=== PATIENT | male | born 1940 | race Caucasian/White ===

== ENCOUNTER 2016-11-17 10:55 | Outpatient (CLI) | payer MEDICARE, OTHER | END 2016-11-17 10:56 | disposition home or self-care (01) | DX: E29.1 Testicular hypofunction (principal) ==

== ENCOUNTER 2017-02-01 13:49 | Outpatient (CLI) | payer MEDICARE, OTHER | END 2017-02-01 13:50 | disposition home or self-care (01) | DX: J39.8 Other specified diseases of upper respiratory tract (principal); D00.1 Carcinoma in situ of esophagus ==

== ENCOUNTER 2017-02-24 06:11 | Day surgery (SDC) | payer MEDICARE, OTHER ==
[2017-02-24] MEDS ORDERED: LACTATED RINGERS 1,000 ML IV ONE ×3 (06:40→08:59)
[2017-02-24] MEDS ORDERED: LIDOCAINE-MPF 2% 5 ML VIAL IM ONE (07:15)
[2017-02-24] MEDS ORDERED: PROPOFOL 200 MG/20 ML VIAL IVP ONE (07:15)
[2017-02-24] MEDS ORDERED: hydrALAZINE INJ 20 MG/ML VIAL IVP ONE (07:15)
[2017-02-24] MEDS ORDERED: GLYCOPYRROLATE 1 MG/5 ML VIAL IVP ONE (07:15)
[2017-02-24] MEDS ORDERED: KETAMINE 500 MG/10 ML VIAL IVP ONE (07:15)
[2017-02-24] MEDS ORDERED: MIDAZOLAM 2 MG/2 ML VIAL IVP ONE (07:15)
[2017-02-24] MEDS ORDERED: BUPIVACAINE 0.5%-EPI 1:200000 PF 30 ML VIAL SUBQ ONE ×2 (08:22)
[2017-02-24] MEDS ORDERED: LIDOCAINE 1% 50 ML MDV SUBQ ONE ×2 (08:22)
[2017-02-24] MEDS ORDERED: DEXAMETHASONE 4 MG/ML VIAL ONE (09:52)
[2017-02-24] MEDS ORDERED: RACEPINEPHRINE 2.25% NEB INH ONE (10:34)
[2017-02-24] MEDS ORDERED: ONDANSETRON 4 MG/2 ML VIAL ONE (10:51)
[2017-02-24] MEDS ORDERED: IPRATROPIUM/ALBUTEROL 3 ML NEB INH ONE (13:11)
== END 2017-02-24 06:12 | disposition home or self-care (01) ==
PROC: 0DB18ZX Excision of Upper Esophagus, Via Natural or Artificial Opening Endoscopic, Diagnostic (ICD-10-PCS; principal; 2017-02-24 07:30)
PROC: 02HV33Z Insertion of Infusion Device into Superior Vena Cava, Percutaneous Approach (ICD-10-PCS; 2017-02-24 07:30)
DX: C34.90 Malignant neoplasm of unspecified part of unspecified bronchus or lung (principal); C33 Malignant neoplasm of trachea; Z85.01 Personal history of malignant neoplasm of esophagus; K22.10 Ulcer of esophagus without bleeding; I10 Essential (primary) hypertension; K21.9 Gastro-esophageal reflux disease without esophagitis; F17.210 Nicotine dependence, cigarettes, uncomplicated; I83.90 Asymptomatic varicose veins of unspecified lower extremity; R09.89 Other specified symptoms and signs involving the circulatory and respiratory systems; J43.9 Emphysema, unspecified; N40.1 Benign prostatic hyperplasia with lower urinary tract symptoms; R33.8 Other retention of urine
CPT/HCPCS: 36561; 43239; 51702; 51798; 71010; 71020; 81001; 99283; A9270; C1788; J7120; J7620

== ENCOUNTER 2017-02-24 19:20 | Emergency (ER) | payer MEDICARE, OTHER ==
[2017-02-24] MEDS ORDERED: LIDOCAINE 2% URO-JET 5 ML SYRINGE UR STA (20:33)
[2017-02-24] MEDS ORDERED: LIDOCAINE 2% URO-JET 5 ML SYRINGE UR ONE (20:38)
== END 2017-02-24 21:46 | disposition home or self-care (01) ==
DX: N40.1 Benign prostatic hyperplasia with lower urinary tract symptoms (principal); R33.8 Other retention of urine; Z98.890 Other specified postprocedural states; I10 Essential (primary) hypertension; K21.9 Gastro-esophageal reflux disease without esophagitis

== ENCOUNTER 2017-03-27 08:00 | Outpatient (CLI) | payer MEDICARE, OTHER | END 2017-03-27 08:01 | disposition home or self-care (01) | DX: E29.1 Testicular hypofunction (principal) ==

== ENCOUNTER 2017-04-14 09:05 | Inpatient (IN) | payer MEDICARE, OTHER ==
--- NOTE | 2017-04-14 09:14 | ED Physician Documentation ---
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 several weeks of progressive soa and worsening cough no fever no NVD no leg swelling no CP arrives hypoxic and in new onset afib RVR states he has an advanced directive on file - yes to CPR "but dont get carried away" and yes to intubation "as long as it is temporary" Review of Systems Constitutional: denies: Fever, Chills Cardiac: denies: Chest pain / pressure, Palpitations Respiratory: reports: Dyspnea, Cough GI: denies: Abdominal Pain, Nausea, Vomiting, Diarrhea Musculoskeletal: denies: Extremity pain, Extremity swelling Endocrine: denies: Easy bruising / bleeding Immunocompromised: denies: Immunocompromised PD PAST MEDICAL HISTORY - Past Medical History Cardiovascular: Hypertension, High cholesterol Respiratory: None, Shortness of breath, Other Neuro: None Endocrine/Autoimmune: None GI: GERD, Other : Benign prostate hypertrophy HEENT: None, Chronic vision loss Psych: None, Depression Musculoskeletal: Osteoarthritis Derm: None - Past Surgical History General: Appendectomy /B[employer] 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 - Present Medications Home Medications: Ambulatory Orders Medication Instructions Recorded Confirmed Multivitamin [Multi-Vitamin Daily] 1 each PO DAILY 03/27/13 04/14/17 raNITIdine [Zantac] 150 mg PO BID 02/20/17 04/14/17 Albuterol Sulf [Ventolin Hfa 2 puffs INH Q4HR PRN 03/21/17 04/14/17 Inhaler] Lisinopril 10 mg PO DAILY 04/14/17 04/14/17 Tamsulosin HCl [Tamsulosin HCl] 0.5 mg PO DAILY 04/14/17 04/14/17 - Allergies Allergies/Adverse Reactions: Allergies Allergy/AdvReac Type Severity Reaction Status Date / Time naproxen sodium * Allergy Hives Verified 02/24/17 20:37 [From [place]] - Social History Does the pt smoke?: No Smoking Status: Never smoker PD ED PE NORMAL - Vitals Vital signs reviewed: Yes - General General: Alert and oriented X 3, Other (cachectic labored resp) - Neck Neck: Supple, no meningeal sign - Cardiac Cardiac: No: RRR (tachy irreg) - Respiratory Respiratory: Other (syeda BS coarse MOUNIKA) - Abdomen Abdomen: Soft, Non tender - Derm Derm: Other (little pale) - Extremities Extremities: No deformity, No edema, No calf tenderness / cord - Neuro Neuro: Alert and oriented X 3 Results - Vitals Vitals: Vital Signs - 24 hr 04/14/17 04/14/17 04/14/17 09:13 09:36 09:38 Temperature 36.7 C Heart Rate 187 H 161 H 164 H Respiratory 24 24 24 Rate Blood Pressure 127/70 103/67 93/47 L O2 Saturation 84 L 96 94 04/14/17 04/14/17 04/14/17 09:44 09:47 10:14 Temperature Heart Rate 140 H 157 H Respiratory 22 20 Rate Blood Pressure 88/55 L 91/50 L 110/61 O2 Saturation 93 96 04/14/17 04/14/17 04/14/17 10:16 10:18 10:19 Temperature Heart Rate 84 83 88 Respiratory 18 16 Rate Blood Pressure 74/42 L 105/56 L O2 Saturation 100 98 04/14/17 04/14/17 04/14/17 10:22 10:48 11:03 Temperature 36.5 C Heart Rate 87 93 92 Respiratory 16 18 18 Rate Blood Pressure 103/52 L 87/45 L 85/47 L O2 Saturation 94 96 95 04/14/17 04/14/17 04/14/17 11:23 12:25 12:29 Temperature Heart Rate 87 81 82 Respiratory 16 18 Rate Blood Pressure 83/50 L 87/58 L 90/66 O2 Saturation 96 96 04/14/17 04/14/17 12:36 12:40 Temperature Heart Rate 82 85 Respiratory 16 16 Rate Blood Pressure 88/56 L 94/53 L O2 Saturation 99 97 Oxygen O2 Source Nasal cannula Oxygen Flow Rate 4 - EKG (time done) 0940 Rate: Rate (enter#) (165) Rhythm: Atrial fibrillation [place]: Normal Ischemia: Non specific changes 1027 Rate: Rate (enter#) (86) Rhythm: NSR [place]: Normal Intervals: Normal [place] (borderline) Ischemia: ST elevation c/w repol - Labs Labs: Laboratory Tests 04/14/17 04/14/17 04/14/17 09:26 09:26 09:26 WBC 4.5 L RBC 3.06 L Hgb 11.2 L Hct 32.9 L MCV 107.5 H MCH 36.6 H MCHC 34.1 RDW 14.4 Plt Count 64 L MPV 8.7 Neut # 4.1 Lymph # 0.2 L [place] # 0.1 Eos # 0.0 Baso # 0.0 Absolute Nucleated RBC 0.02 Nucleated RBCs 0.5 Manual Slide Review Indicated WBC Morphology 1+ TOXIC GRANULATION Platelet Estimate DECREASED (<130,000) Platelet Morphology NORMAL APPEARANCE RBC Morph Micro Appear 1+ SCHISTOCYTES Sodium 122 L Potassium 4.5 Chloride 85 L Carbon Dioxide 23 Anion Gap 14.0 H BUN 18 Creatinine 1.1 Estimated GFR (MDRD) 65 L Glucose 176 H Lactic Acid Calcium 7.9 L Phosphorus Magnesium Troponin I < 0.04 B-Natriuretic Peptide Albumin 04/14/17 04/14/17 04/14/17 09:26 09:26 10:45 WBC RBC Hgb Hct MCV MCH MCHC RDW Plt Count MPV Neut # Lymph # [place] # Eos # Baso # Absolute Nucleated RBC Nucleated RBCs Manual Slide Review WBC Morphology Platelet Estimate Platelet Morphology RBC Morph Micro Appear Sodium Potassium Chloride Carbon Dioxide Anion Gap BUN Creatinine Estimated GFR (MDRD) Glucose Lactic Acid 1.9 Calcium Phosphorus 4.5 Magnesium 1.7 Troponin I B-Natriuretic Peptide 279 H Albumin 2.2 L - Rads (name of study) CXR Radiology: See rad report (extensive right basilar infiltrates, minimal L infiltrate small effusions) CTPA Radiology: See rad report (+ PE RML lobar level, possible filling defect in R atrium and IVC recommend echo for further, 2 masses RLL, infiltrate could be lymphangetic spread of cancer or perhaps infiltrate, enlarged nodes ) Procedures - Cardioversion 1 Indication: Tachyarrhythmia, Clinically unstable, Hypotension Risks, benefits, alternatives explained to: Pt, Other (family) Prep: IV, O2, reporting specialist, Pulse ox, Airway equip Meds: Etomidate, Propofol, Versed CS via: Pads, AP approach Sync: Biphasic, 100j Post cardioversion rhythm: NSR Complications: Other (low BP) Performed by: Specialist (anesthesia did sedation I did cardioversion) PD MEDICAL DECISION MAKING - ED course ED course: pt with unstable a fib - tried dilt but BP dropped and HR still up to 190 needs cardioversion high risk conscious sedation (elderly comorbidities, hypoxic etc) so anesthesia assisted with sedation (etomidate 20 and propofol 40 and versed 2mg) while I performed the cardioversion cardiovert successful at 100 J X 1 sedation went smoothly, no hypoxia or resp compromise but pt did have hypotension req IVF and ephedrine administered by anesthesia pt continued to be hypotensive CXR showed large RLL infiltrate - given zosyn after lactate and blood cx CTPA showed PE but also either spread of his cancer or pna - given heparin as well and CT showed possible clot in R atrium and IVC echo rec and so that was done and not clot was seen pt continued to be hypotensive even after heparin for PE and antibiotics and IVF - stated levophed pt admitted to ICU Dr Ochoa Departure - Departure Disposition: 66 [facility] DC/Xfer Clinical Impression: Atrial fibrillation with RVR, Hypoxia Pulmonary embolism Qualifiers: Pulmonary embolism type: other Chronicity: acute Acute cor pulmonale presence: without acute cor pulmonale Qualified Code(s): I26.99 - Other pulmonary embolism without acute cor pulmonale Pneumonia Qualifiers: Pneumonia type: due to unspecified organism Laterality: right Lung location: lower lobe of lung Qualified Code(s): J18.1 - Lobar pneumonia, unspecified organism Hypotension Qualifiers: Hypotension type: unspecified hypotension type Qualified Code(s): I95.9 - Hypotension, unspecified Lung cancer Qualifiers: Laterality: unspecified laterality Lung location: unspecified part of lung Qualified Code(s): C34.90 - Malignant neoplasm of unspecified part of unspecified bronchus or lung Anemia Qualifiers: Anemia type: unspecified type Qualified Code(s): D64.9 - Anemia, unspecified Condition: Serious Discharge Date/Time: 04/14/17 13:55
[2017-04-14] MEDS ORDERED: SODIUM CHLORIDE 0.9% 1,000 ML IV ONE ×2 (09:19→11:57)
[2017-04-14] MEDS ORDERED: diltiaZEM INJ 5 MG/ML VIAL IVP STA (09:20)
[2017-04-14] MEDS ORDERED: diltiaZEM INJ 5 MG/ML VIAL ONE (09:29)
[2017-04-14 09:32] LABS: EOSINOPHILS % (AUTO) 0.1 %; HCT - HEMATOCRIT 32.9 % (42.0-52.0); HGB - HEMOGLOBIN 11.2 g/dL (14.0-18.0); LYMPHOCYTES # (AUTO) 0.2 10^3/uL (1.5-3.5); LYMPHOCYTES % (AUTO) 4.3 %; MEAN CORPUSCULAR HEMOGLOBIN 36.6 pg (27.0-31.0); MEAN CORPUSCULAR HGB CONC 34.1 g/dL (32.0-36.0); MEAN CORPUSCULAR VOLUME 107.5 fL (80.0-94.0); MEAN PLATELET VOLUME 8.7 fL (7.4-11.4); MONOCYTES # (AUTO) 0.1 10^3/uL (0.0-1.0); MONOCYTES % (AUTO) 2.7 %; NEUTROPHILS # (AUTO) 4.1 10^3/uL (1.5-6.6); NEUTROPHILS % (AUTO) 92.9 %; NUCLEATED RED BLOOD CELLS AUTO 0.5 /100WBC; RED BLOOD COUNT 3.06 10^6/uL (4.70-6.10); RED CELL DISTRIBUTION WIDTH 14.4 % (12.0-15.0); UNCORRECTED WHITE BLOOD COUNT 4.5 x10^3/uL; WHITE BLOOD COUNT 4.5 x10^3/uL (4.8-10.8)
[2017-04-14 09:45] LABS: CALCIUM 7.9 mg/dL (8.5-10.3); CREATININE 1.1 mg/dL (0.6-1.2); POTASSIUM 4.5 mmol/L (3.5-5.0)
[2017-04-14] MEDS ORDERED: MIDAZOLAM 2 MG/2 ML VIAL ONE (10:05)
[2017-04-14 10:25] LABS: PLATELET ESTIMATE, MANUAL DECREASED (<130,000) (NORMAL); PLATELET MORPHOLOGY NORMAL APPEARANCE (NORMAL)
[2017-04-14 10:26] LABS: WBC MORPHOLOGY (MULTIPLE) 1+ TOXIC GRANULATION (NORMAL)
--- NOTE | 2017-04-14 10:26 | XRAY Preliminary Report ---
Exam: XR Chest 1 View IMPRESSION: Extensive right basilar infiltrates with minimal involvement on the left and small effusi ons. [facility] SITE ID: [id number]
[2017-04-14] MEDS ORDERED: PIPERACILLIN/TAZOBACTAM 3.375 GM in SODIUM CHLORIDE 0.9% MINIBAG 100 ML IV STA (10:29)
--- NOTE | 2017-04-14 10:29 | XRAY Report ---
EXAM: CHEST RADIOGRAPHY EXAM DATE: 04/14/2017 09:51 AM. CLINICAL HISTORY: Lung ca hypoxia new a fib. COMPARISON: 02/24/2017. TECHNIQUE: 1 view. FINDINGS: Lungs/Pleura: Hyperexpanded with coarse lung markings typical of COPD. Prominent infiltration in the right lower lobe with patchy consolidation. Small amount of atelectasis versus infiltrate in left bas e. Small pleural effusions. No pneumothorax. Mediastinum: Normal heart size, unchanged. Upper lobe vessels not distended. Other: Right Port-A-Cath. Degenerative changes. IMPRESSION: Extensive right basilar infiltrates with minimal involvement on the left and small effusi ons. [facility] Referring Provider Line: [phone] SITE ID: [id number]
[2017-04-14] MEDS ORDERED: ETOMIDATE 40 MG/20 ML VIAL IVP ONE (10:30)
[2017-04-14] MEDS ORDERED: ePHEDrine 50 MG/ML AMP IVP ONE (10:30)
[2017-04-14] MEDS ORDERED: PROPOFOL 200 MG/20 ML VIAL IVP ONE (10:30)
[2017-04-14] MEDS ORDERED: HEPARIN 25,000 UNITS/500 ML 500 ML IV STA (11:24)
[2017-04-14] MEDS ORDERED: HEPARIN 5,000 UNIT/ML VIAL IVP ONE (11:24)
--- NOTE | 2017-04-14 11:29 | CT Report ---
EXAM: CT ANGIOGRAM CHEST EXAM DATE: 04/14/2017 10:05 AM. CLINICAL HISTORY: Lung cancer hypoxia new a fib. COMPARISON: None. TECHNIQUE: Routine helical imaging was performed through the chest in the pulmonary arterial phase. I V Contrast: 100 cc Isovue-300. Reconstructions: Sagittal, coronal, and 3-D MIP. In accordance with CT protocol optimization, one or more of the following dose reduction techniques w ere utilized for this exam: automated exposure control, adjustment of mA and/or KV based on patient s ize, or use of iterative reconstructive technique. FINDINGS: Pulmonary Arteries: Diagnostic quality: Adequate through the segmental arteries. Thromboembolism involving the right midd le lobar artery and segmental arteries of the right middle lobe, with minimal involvement of lower lo be subsegmental vessels. No large or central lesion. RV/LV is within normal limits. There is no interventricular septal bowing. There is marked reflux of contrast material in the IVC. Lungs/Pleura: 3.2 cm cavitary mass in the right lower lobe with additional areas of masslike consolid ation including one measuring 4.2 cm. Extensive infiltration with peribronchial thickening predominan tly in the right lower lobe, but also involving right middle lobe and left lower lobe; lymphangitic s pread in the right lower lobe is a consideration, as well as congestion secondary to lymphadenopathy and atypical infection. Changes secondary to radiation therapy also a consideration. Small densities are present in the left upper lobe measuring 9-10 mm. Multiple similar nodules are present in the lef t lower lobe. No effusion or pneumothorax. Mediastinum: Normal heart size. No pericardial effusion. At least 2 vessel coronary artery calcificat ion. Possible filling defect in the right atrium extending into the partially opacified IVC, versus u nopacified blood. Enlarged mediastinal lymph nodes including right pretracheal nodes measuring up to 11 mm on axial image 74, right hilar node measuring 12 mm on image 79, and subcarinal node measuring 12 mm on image 80. Thoracic Aorta: Mildly prominent ascending thoracic aorta measuring 3.6 cm. Otherwise unremarkable. Upper Abdomen: Calcified granulomata in the spleen. Other: None. IMPRESSION: 1. Positive for pulmonary embolism involving predominantly the right middle lobe, but with some subse gmental involvement in the lower lobes as well. No large or central lesion. 2. Possible filling defect in right atrium and upper IVC; correlation with echocardiogram may be help ful. 3. Right lower lobe cavitary mass with additional masses and nodules bilaterally and associated lymph adenopathy, suspicion of lymphangitic spread, right lower lobe congestion, possible atypical infectio n. 4. Marked IVC reflux indicating right heart dysfunction. [facility] The above critical findings were discussed with Dr. Thomas by Dr. Jose Styles at 11:25 hrs on 04/14. Referring Provider Line: [phone] SITE ID: [id number]
[2017-04-14] MEDS ORDERED: HEPARIN 5,000 UNIT/ML VIAL ONE (11:30)
[2017-04-14] MEDS ORDERED: HEPARIN 25,000 UNITS/500 ML 500 ML IV ONE (11:30)
[2017-04-14] MEDS ORDERED: ONDANSETRON 4 MG/2 ML VIAL IVP PRN (12:43)
[2017-04-14] MEDS ORDERED: HYDROmorphone 1 MG/ML SYRINGE IVP PRN (12:43)
[2017-04-14] MEDS ORDERED: ONDANSETRON ODT 4 MG TABLET TL PRN (12:43)
[2017-04-14] MEDS ORDERED: HYDROcod/ACETAM 5/325 MG TABLET PO PRN (12:43)
[2017-04-14] MEDS ORDERED: ACETAMINOPHEN 325 MG TABLET PO PRN (12:43)
[2017-04-14] MEDS ORDERED: SODIUM CHLORIDE FLUSH 0.9% 10 ML SYRINGE IVP PRN (12:43)
[2017-04-14] MEDS: SODIUM CHLORIDE 0.9% 1,000 ML IV SCH (14:54)
[2017-04-14] MEDS: PIPERACILLIN/TAZOBACTAM 3.375 GM in SODIUM CHLORIDE 0.9% MINIBAG 100 ML IV SCH ×2 (15:22→22:47)
[2017-04-14 16:13] LABS: MAGNESIUM 1.7 mg/dL (1.7-2.8); PHOSPHORUS 4.5 mg/dL (2.5-4.6)
[2017-04-14] MEDS: ENOXAPARIN 60 MG/0.6 ML SYRINGE SUBQ SCH (17:15)
--- NOTE | 2017-04-14 19:32 | HISTORY & PHYSICAL EXAMINATION ---
DATE OF ADMISSION: 04/14/2017 PRIMARY CARE PROVIDER: Sanjiv Guthrie PA-C. ADMITTING PROVIDER: Jaclyn Ochoa MD. CHIEF COMPLAINT: Severe shortness of breath. HISTORY OF PRESENT ILLNESS: Patient is a 76-year-old man who has the most amazing history of surviving stage IV esophageal cancer. He was actually discharged from the Oncology practice in 2013 because he had been doing so well. He started developing a cough and hoarseness in 12/2016 after having a URI. In January, he lost his voice and it just does not seem to be getting better. A CT of the neck was obtained 02/01/2017 and he had a soft tissue mass involving the posterior wall of the trachea in the upper thorax with 50% luminal occlusion. CT/PET scan 02/10/2017 showed a mass in the upper trachea and retrotracheal region, and lung consolidation in the medial segment right upper lobe and inferior lingular region. Bronchoscopy was done by Dr. Matson, and an endobronchial lesion was biopsied 02/15/2017. This confirmed squamous cell cancer moderate to poorly differentiated. This is his second primary, new from his first primary in 2006. That history will be reviewed in the past medical history. He has received 2 cycles of chemotherapy and is not a candidate for radiation therapy because of previous radiation to this area. He had an EGD 02/24/2017 with baylee Simms for [facility] General surgery. He has also had a new port placed. He has been miserable with the chemotherapy and that everything tastes like cardboard, he has lost his appetite. The chronic cough and the hoarseness of his voice has remained unchanged. He is exhausted and minimal exertion just wipes him out. The cough has continued to progress over the last few weeks, it is getting worse and worse and almost constant, unremitting. Accompanying the cough has been a subtle increased shortness of breath. He has had no hemoptysis. The cough is productive of copious amounts of yellow, green phlegm. He denies fever or chills. The shortness of breath became so acute today that he called an ambulance and was brought to the hospital and seen by Dr. Thomas. His pulse was 187, he was 84% on room air. Blood pressure was 127/70, and he had no fever. He was quickly identified as having pneumonia, and atrial fibrillation. His blood pressure dropped into the 90s systolic. Diltiazem did not help. So he was electively cardioverted after sedation with accommodated Versed and propofol. That dropped his pressure and he became hypotensive and had to be put on Levophed. CT pulmonary angiogram was done and he was found to have multiple pulmonary emboli and a clot in the IVC. Dr. Thomas has consulted me. We are now placing the patient in the ICU. He is on Levophed from the emergency room, on Zosyn, IV heparin. PAST MEDICAL HISTORY: 1. 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 Symptoms at that time were dysphagia. Initial staging revealed lesion in the right lower lobe of the lung, and biopsy confirmed metastatic disease. He underwent induction chemotherapy with Taxotere, carboplatin, and Xeloda for 5 cycles that ended in 11/2007. He achieved complete response on PET CT scan. He then received consolidation radiation to the main tumor in the esophageal area, with excellent response. Subsequent PET/CT March 2008 revealed re-appearance of the right lower lung lesion, but at different location. He received carboplatin , Taxotere, and Xeloda again in April 2008 for 3 cycles. By 06/2008 no residual disease. Radiation therapy to this second lesion 10/2008 for consolidation. Followup March 2010 with MRI showed no recurrence of disease. PET CT 09/2011 revealed no recurrence of disease. He was followed on a regular basis by Dr. Francis Negron and finally discharged from the practice in 2014 after many years of no recurrence. 2. Hypertension. 3. Reflux disease. 4. Tobacco abuse. 5. Vasectomy. 6. Left subclavian port in 2006 which pneumothorax. 7. Appendectomy 1963. ALLERGIES: NAPROXEN. MEDICATIONS: 1. Ventolin HFA inhaler 2 puffs every 4 hours. This was given to him in the last couple weeks by his primary care provider for the cough. 2. Lisinopril 10 mg a day. 3. Multivitamin once a day. 4. Tamsulosin 0.4 mg daily. 5. Ranitidine 150 mg p.o. b.i.d.. SOCIAL HISTORY: He started smoking in 7 and stopped smoking 1 pack per day about a month ago. He drinks about 1 beer 3 times a week. He is in the [employer]. [employer] and stopped flying probably in January of this year. He was born in [place] and ended up on [facility] when he retired from the [employer]. He is to his first and they have been for 56 years. They live in their own home. He is completely independent with activities of daily living as this whole process was started. FAMILY HISTORY: Mom in her 70s, unknown cause. Dad in his 40s. They never talked about it and it was almost like a shameful subject. He thinks his dad may have of cancer. One sister is in diminishing health, but otherwise just getting older. His 4 children are healthy. REVIEW OF SYSTEMS: He was doing well up until the chemotherapy started. Between the chemotherapy and the Neupogen he has just gone downhill. Neupogen really makes his hands and feet burn and tingle. He is exhausted, short of breath all the time. ENT: Denies glaucoma or cataracts. Wears glasses. All food tastes like cardboard. Tongue always feels dry. He has lost his voice since January and is unable to vocalize other than through a forced whisper. PULMONARY: Chronic daily cough productive of thick phlegm. No hemoptysis. CARDIAC: Denies palpitations up until today. Has no history of edema, orthopnea , valvular heart disease or IA. GASTROINTESTINAL: Horrible anorexia, everything tastes like cardboard. Diminished bowel movements, but no abdominal pain, no diarrhea. GENITOURINARY: Recent onset of hesitancy, but no dysuria, urgency, frequency, flank pain. JOINTS: Not very painful. SKIN: No new rashes. PSYCHIATRIC: So far so good. A little apprehensive about the future, but seems to be coping well. Denies depression, suicidal ideation. CENTRAL NERVOUS SYSTEM: Denies headache, syncope, seizure, has peripheral neuropathy. PHYSICAL EXAMINATION: VITAL SIGNS: On examination, he seen in the ICU after transfer from the ED. He is on Levophed. Pulse is 84, blood pressure 126/56, respirations 16, 97% on 4 liters. GENERAL: Overall he is a lean, lanky, almost cachectic, elderly gentleman with a very soft hoarse voice, but I have to lean in very carefully to hear. He is wearing glasses, is in no acute distress, and more than anything he is just tired. He is very alert and lucid. HEAD AND NECK: Remarkable for the glasses, dry oral mucosa, hoarse voice. Shotty neck adenopathy, no carotid bruits. LUNGS: Have coarse rhonchi with inhalation and exhalation, rhonchi indicating quite a bit of phlegm. Diminished breath sounds at the bases, but no increased respiratory effort. No acute respiratory distress and during the exam, he has multiple episodes of very weak cough and he brings up minimal phlegm. HEART: PMI is normally placed with a regular rate and rhythm. Port is in place with no subcutaneous edema, redness, or heat. CHEST: the port site looks clean, no redness, fluctuence. ABDOMEN: Scaphoid, soft, nontender with firm musculature, normal bowel sounds. EXTREMITIES: Warm without clubbing, cyanosis, or edema. He has good range of motion of elbows, wrists, hands, knees. NEUROLOGIC: He is alert and oriented to person, place and time. He can follow 2- step commands. Cranial nerves appear intact other than the vocal cords. Upper and lower extremity strength testing are normal for a gentleman who is weak, tired, but there are no focal deficits and strength is intact. No tremors. Sodium was 122 this morning, potassium 4.5. BUN 18, creatinine 1.1, glucose 176 , lactic acid 1.9. BNP 279, phosphorus 4.5, magnesium 1.7. Troponin less than 0.04. White cell count is 4.5, hemoglobin 11.2, hematocrit 32.9, MCV 107, platelets 64. Blood cultures have been ordered. I have ordered sputum cultures. ASSESSMENT/PLAN: 1. New onset atrial fibrillation. Most likely cause is the multiple pulmonary emboli. Now cardioverted. Hypotensive as a result most likely of his medications given during sedation. Check echo. Medication hooker I do not think he is going to need any permanent medications now that he is successfully converted to sinus. Check troponin again in another 12 hours. 2. Multiple pulmonary emboli. Lovenox 60 mg subcutaneous b.i.d. With his history of malignancy he will most likely be on Lovenox and will not be transitioned to Coumadin. 3. Pneumonia. Zosyn and Levaquin. The patient is immunocompromised and has been in clinic settings twice now. Check sputum culture and review blood cultures. 4. 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 He has been offered palliative care and has declined it because he felt he was not having any symptoms that warranted it. He would like to get through this acute episode. His goal is still to try and live 10 years from now. I told him that I do not know if that would be possible. I explained that I feel he did remarkably well with his first go around on his stage IV cancer, but with this turn of events, the outcome may not be so great for him. Nevertheless, we are going to get him through this acute status. He wants everything done. Then he would like to sit down and talk to Dr. Negron about his prognosis, and he will weigh the benefits of all of this to see if a few weeks down the road he wants to continue this. 5. FULL CODE STATUS as above. JOB #: [id number] EXT JOB #:[id number] [email or web address]
[2017-04-14] MEDS: SODIUM CHLORIDE FLUSH 0.9% 10 ML SYRINGE IVP SCH ×2 (19:51→22:49)
[2017-04-14] MEDS ORDERED: ENOXAPARIN 40 MG/0.4 ML SYRINGE SUBQ SCH (21:00)
[2017-04-15] MEDS ORDERED: traZODone 50 MG TABLET PO SCH (00:20)
[2017-04-15] MEDS: SODIUM CHLORIDE 0.9% 1,000 ML IV SCH ×3 (00:34→20:32)
[2017-04-15] MEDS: ALBUTEROL NEB 2.5 MG/3 ML INH PRN ×3 (04:50→22:20)
[2017-04-15] MEDS: SODIUM CHLORIDE FLUSH 0.9% 10 ML SYRINGE IVP SCH ×3 (05:08→22:01)
[2017-04-15] MEDS: PIPERACILLIN/TAZOBACTAM 3.375 GM in SODIUM CHLORIDE 0.9% MINIBAG 100 ML IV SCH ×3 (05:14→22:00)
[2017-04-15] MEDS: ENOXAPARIN 60 MG/0.6 ML SYRINGE SUBQ SCH ×2 (05:15→17:38)
--- NOTE | 2017-04-15 05:35 | XRAY Preliminary Report ---
Exam: XR Chest 1 View IMPRESSION: 1. Large lung volumes consistent with emphysema. 2. Bilateral interstitial disease and small pleural effusions. 3. Dense airspace opacity at the right base. [facility] SITE ID: [id number]
--- NOTE | 2017-04-15 05:38 | XRAY Report ---
EXAM: CHEST RADIOGRAPHY EXAM DATE: 04/15/2017 05:21 AM. CLINICAL HISTORY: Increased hypoxia. COMPARISON: 04/14/2017. TECHNIQUE: 1 view. FINDINGS: Lungs/Pleura: Large lung volumes. Dense airspace opacity at the right base. Small pleural effusions. Bilateral interstitial disease. No pneumothorax. Mediastinum: Within exam limitations, cardiomediastinal contour is probably normal. Other: Right-sided PowerPort is unchanged. IMPRESSION: 1. Large lung volumes consistent with emphysema. 2. Bilateral interstitial disease and small pleural effusions. 3. Dense airspace opacity at the right base. [facility] Referring Provider Line: [phone] SITE ID: [id number]
[2017-04-15 06:11] LABS: BASOPHILS % (AUTO) 0.2 %; EOSINOPHILS % (AUTO) 0.2 %; HGB - HEMOGLOBIN 9.4 g/dL (14.0-18.0); LYMPHOCYTES % (AUTO) 8.3 %; MEAN CORPUSCULAR HGB CONC 34.7 g/dL (32.0-36.0); MEAN CORPUSCULAR VOLUME 106.4 fL (80.0-94.0); MEAN PLATELET VOLUME 9.6 fL (7.4-11.4); MONOCYTES % (AUTO) 3.5 %; NEUTROPHILS % (AUTO) 87.8 %; RED BLOOD COUNT 2.53 10^6/uL (4.70-6.10); RED CELL DISTRIBUTION WIDTH 14.2 % (12.0-15.0)
[2017-04-15 06:32] LABS: CALCIUM 7.3 mg/dL (8.5-10.3); CREATININE 0.7 mg/dL (0.6-1.2); MAGNESIUM 1.8 mg/dL (1.7-2.8); PHOSPHORUS 2.7 mg/dL (2.5-4.6); POTASSIUM 3.6 mmol/L (3.5-5.0)
[2017-04-15] MEDS: PANTOPRAZOLE 40 MG VIAL IVP SCH (06:37)
[2017-04-15 07:11] LABS: BAND NEUTROPHILS % (MANUAL) 24 %; LYMPHOCYTES % (MANUAL) 7 %; NEUTROPHILS % (MANUAL) 66 %; TOTAL CELLS COUNTED 100
[2017-04-15 07:12] LABS: NP AUTO DIFFERENTIAL? YES; NP MAN DIFFERENTIAL? NO; PLATELET ESTIMATE, MANUAL DECREASED (<130,000) (NORMAL); PLATELET MORPHOLOGY NORMAL APPEARANCE (NORMAL)
[2017-04-15] MEDS ORDERED: VANCOMYCIN INJ 1 GM, VANCOMYCIN INJ 500 MG in SODIUM CHLORIDE 0.9% 500 ML IV SCH (08:00)
[2017-04-15] MEDS ORDERED: VANCOMYCIN INJ 1 GM in SODIUM CHLORIDE 0.9% 250 ML IV SCH (08:00)
--- NOTE | 2017-04-15 08:02 | PROVIDER PROGRESS NOTE ---
Subjective - Prog Note Date Prog Note Date: 04/15/17 Prog Note Time: 07:54 - Subjective Subjective: he was able to come off levophed early evening. was eating as I left. this morning become more hypoxic. CXR with slight worseing pneumonia. Vancomycin added. Current Medications - Current Medications Current Medications: Active Medications Acetaminophen (Tylenol) 650 mg PO Q4HR PRN PRN Reason: Pain 1 to 4 Acetaminophen/Hydrocodone Bitart ([place] 5/325) 1 tab PO Q4HR PRN PRN Reason: Pain 5 to 7 Albuterol () 2.5 mg INH Q4HR PRN PRN Reason: Wheezing Last Admin: 04/15/17 04:50 Dose: 2.5 mg Enoxaparin Sodium (Lovenox) 60 mg SUBQ Q12H [facility]Z Last Admin: 04/15/17 05:15 Dose: 60 mg Hydromorphone HCl (Dilaudid Inj) 1 mg IVP Q2HR PRN PRN Reason: Pain 8 to 10 Sodium Chloride (Normal Saline 0.9%) 1,000 mls @ 100 mls/hr IV .Q10H [facility] Last Admin: 04/15/17 00:34 Dose: 100 mls/hr Piperacillin Sod/Tazobactam (Sod 3.375 gm/ Sodium Chloride) 100 mls @ 25 mls/ hr IV Q8H [facility] Last Admin: 04/15/17 05:14 Dose: 25 mls/hr Norepinephrine Bitartrate 8 mg (/ Dextrose) 250 mls @ 15 mls/hr IV .[id number] LIZ ; 8 MCG/MIN PRN Reason: Protocol Last Titration: 04/14/17 17:38 Dose: 0 mcg/min Vancomycin HCl 1 gm/Vancomycin HCl 500 mg/ Sodium Chloride 500 mls @ 250 mls/ hr IV ONCE [facility]Z Stop: 04/15/17 12:00 Last Admin: 04/15/17 07:54 Dose: 250 mls/hr Vancomycin HCl 1 gm/ Sodium (Chloride) 250 mls @ 166.667 mls/hr IV Q12H [facility] Ondansetron HCl (Zofran Odt) 4 mg TL Q6HR PRN PRN Reason: Nausea / Vomiting Ondansetron HCl (Zofran Inj) 4 mg IVP Q6HR PRN PRN Reason: Nausea / Vomiting Pantoprazole Sodium (Protonix) 40 mg IVP QDAC [facility] Last Admin: 04/15/17 06:37 Dose: 40 mg Sodium Chloride (Normal Saline Flush 0.9%) 10 ml IVP PRN PRN PRN Reason: NEEDED PER PROVIDER ORDERS Sodium Chloride (Normal Saline Flush 0.9%) 10 ml IVP Q8HR [facility] Last Admin: 04/15/17 05:08 Dose: 10 ml Multivitamin [Multi-Vitamin Daily] 1 each PO DAILY 03/27/13 raNITIdine [Zantac] 150 mg PO BID 02/20/17 Albuterol Sulf [Ventolin Hfa Inhaler] 2 puffs INH Q4HR PRN 03/21/17 Lisinopril 10 mg PO DAILY 04/14/17 Tamsulosin HCl [Tamsulosin HCl] 0.5 mg PO DAILY 04/14/17 Objective - Vital Signs/Intake & Output Reviewed Vital Signs: Yes Vital Signs: Vital Signs x48h Temp Pulse Pulse Resp BP Pulse Ox 04/15/17 07:00 101 H 24 101/42 L 99 04/15/17 06:00 99 24 92/45 L 99 04/15/17 05:22 99 24 108/48 L 97 04/15/17 05:00 102 H 28 H 122/59 L 94 04/15/17 04:50 112 H 102 H 20 105/50 L 90 L 04/15/17 04:00 102 H 24 107/47 L 92 04/15/17 03:00 100 24 98/45 L 94 04/15/17 02:12 101 H 24 97/45 L 93 04/15/17 01:00 104 H 24 112/49 L 94 04/15/17 00:00 36.7 C 104 H 24 98/34 L 94 Intake & Output: Intake & Output 04/12/17 04/13/17 04/14/17 04/15/17 23:59 23:59 23:59 23:59 Intake Total 1243 925 Output Total 690 300 Balance 553 625 - Objective General Appearance: positive: No acute distress, Alert, Other (lean lanky, almost cachectic) Eyes Bilateral: positive: PERRL, EOMI ENT: positive: Pharynx nml Neck: positive: No JVD, Lymphadenopathy (R), Lymphadenopathy (L). negative: Carotid bruit Respiratory: positive: Chest non-tender, Wheezes, Rhonchi, Other (mild distress. he uses his accessory muscles to breath and struggles to talk and breath at anmol same time. was this way yesterday and still alert, able to communicate in spite of this.) Cardiovascular: positive: Regular rate & rhythm (no recurrence of afib yet), Systolic murmur, Gallop/S4 Abdomen: positive: Non-tender, Nml bowel sounds. negative: Guarding, Rebound Extremities: positive: Non-tender, Full ROM. negative: Doug's sign/cords Neurologic/Psychiatric: positive: Oriented x3, CN's nml (2-12), Motor nml, Weakness, Slurred/abnml speech (because of vocal cord involvement, speech at a whisper and sometimes not even that), Other (RN reports occ left facial asymetry but on my exam, nml.) - Lab Results Fish Bones: 04/15/17 04:48 04/15/17 04:48 Other Labs: Lab Results x24hrs 04/15/17 04/15/17 Range/Units 04:48 04:48 WBC 3.0 L (4.8-10.8) x10^3/uL RBC 2.53 L (4.70-6.10) 10^6/uL Hgb 9.4 L (14.0-18.0) g/dL Hct 27.0 L (42.0-52.0) % MCV 106.4 H (80.0-94.0) fL MCH 37.0 H (27.0-31.0) pg MCHC 34.7 (32.0-36.0) g/dL RDW 14.2 (12.0-15.0) % Plt Count 43 L (130-450) 10^3/uL MPV 9.6 (7.4-11.4) fL Neut # Not Reportable Lymph # Not Reportable [place] # Not Reportable Eos # Not Reportable Baso # Not Reportable Absolute Nucleated RBC Not Reportable Total Counted 100 Band Neuts % (Manual) 24 H (0 - 10) % Neutrophils # (Manual) 2.7 (1.5-6.6) 10^3/uL Lymphocytes # (Manual) 0.2 L (1.5-3.5) 10^3/uL Monocytes # (Manual) 0.1 (0.0-1.0) 10^3/uL Nucleated RBCs Not Reportable Differential Comment MANUAL DIFFERENTIAL Platelet Estimate DECREASED (<130,000) (NORMAL) Platelet Morphology NORMAL APPEARANCE (NORMAL) RBC Morph Micro Appear 1+ EVELYN CELLS (NORMAL) Sodium 128 L (135-145) mmol/L Potassium 3.6 (3.5-5.0) mmol/L Chloride 94 L (101-111) mmol/L Carbon Dioxide 27 (21-32) mmol/L Anion Gap 7.0 (6-13) BUN 13 (6-20) mg/dL Creatinine 0.7 (0.6-1.2) mg/dL Estimated GFR (MDRD) 109 (>89) Glucose 118 H (70-100) mg/dL Calcium 7.3 L (8.5-10.3) mg/dL Phosphorus 2.7 (2.5-4.6) mg/dL Magnesium 1.8 (1.7-2.8) mg/dL Assessment/Plan - Problem List (1) Atrial fibrillation with RVR Impression: presented with cough, chronic sob for weeks and acutely worsened. In ER no response to dilt., cardioverted and had hypotension with etomidate, versed, propofol. Needed temporary levophed. now in sinus. rate is controlled. on no meds for now. if afib recurs may need amiodarone. ECHO without RV strain and nml right ventricle pressures. B/L mild atrial enlargement No significant valvular heart disease. EF is nml. (2) Hypotension Impression: was on levophed for a few hours. right now BP 114-120's off levophed. Qualifiers: Hypotension type: hypotension due to drug Qualified Code(s): I95.2 - Hypotension due to drugs (3) Pneumonia Impression: Day #2 of Zosyn. Vancomycin added today so Day #1 Gram stain with many gram neg Respiratory culture with gram neg and gram pos will adjust abx as needed. no other changes for now. still hypoxic with this and has struggle to breath. teetering on edge of respiratory failure but hold on. spoke at length to he and . willing to be intubated if needed. Qualifiers: Pneumonia type: due to other aerobic Gram-negative bacteria Laterality: right Lung location: lower lobe of lung Qualified Code(s): J15.6 - Pneumonia due to other aerobic Gram-negative bacteria (4) Pulmonary embolism Impression: risk of more PE as long as has IVC filled. but there is not more to do other than anticoagulation for now. on lovenox for foreseeable future. platelts are low. Dr. Yanci Lorenz, international nurse for Dr. Negron, of Oncology feels that the high dose of lovenox is warranted on basis of clot load. down the road they may reduce to 60mg once a day but for now stay on 60 mg bid. 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 s/p 2 cycles of chemo with carbo,taxotere and xeloda.. Have spoken to Dr. Yanci Lorenz, international nurse for Dr. Francis Negron. (6) Macrocytic anemia Impression: bone marrow failure? nutritional? will order labs. No transfusion yet. He's at 9 grams of Hgb but is hypoxic and sob. may consider transfusion earlier .
[2017-04-15 12:12] LABS: IMMATURE RETIC FRACTION 0.38; RED BLOOD COUNT 2.46 10^6/uL (4.70-6.10)
[2017-04-15 12:41] LABS: IRON 8 ug/dL (45-182); TOTAL IRON BINDING CAPACITY 147 ug/dL (250-450); TRANSFERRIN 105 mg/dL (180-329)
[2017-04-15 12:57] LABS: FERRITIN 977.3 ng/mL (23.9-336.2)
[2017-04-15] MEDS: VANCOMYCIN INJ 1 GM in SODIUM CHLORIDE 0.9% 250 ML IV SCH (19:44)
--- NOTE | 2017-04-15 20:24 | Ultrasound Preliminary Report ---
Exam: US Duplex Ext Veins Left IMPRESSION: No evidence for deep vein thrombosis. [facility] SITE ID: [id number]
--- NOTE | 2017-04-15 20:27 | Ultrasound Report ---
EXAM: LEFT UPPER EXTREMITY VENOUS ULTRASOUND EXAM DATE: 04/15/2017 07:32 PM. CLINICAL HISTORY: Has PE, and left arm swollen. COMPARISON: None. TECHNIQUE: Real-time sonographic vascular imaging was performed by the building maintenance technician through the upper extremity utilizing both color-flow and Doppler spectral analysis. Multiple c s s representative static bahman ges were saved for review. FINDINGS: Internal Jugular Vein (IJV): Normal. Subclavian Vein (SCV): Normal. Axillary Vein : Normal. Cephalic Vein (superficial vein): Normal. Basilic Vein (superficial vein): Normal. Brachial Vein: Normal. Other: None. IMPRESSION: No evidence for deep vein thrombosis. [facility] Referring Provider Line: [phone] SITE ID: [id number]
[2017-04-15] MEDS ORDERED: traZODone 50 MG TABLET PO STA (20:55)
[2017-04-15] MEDS ORDERED: RACEPINEPHRINE 2.25% NEB INH SCH (22:34)
[2017-04-15] MEDS: SCOPOLAMINE PATCH TOP SCH (23:46)
[2017-04-16] MEDS ORDERED: SODIUM CHLORIDE INHALATION 3 ML NEB ONE (00:43)
[2017-04-16] MEDS ORDERED: LORazepam 1 MG/0.5 ML ORAL SYRINGE PO PRN (00:45)
[2017-04-16] MEDS ORDERED: LORazepam 0.5 MG TABLET ONE (01:08)
[2017-04-16 04:44] LABS: CALCIUM 7.1 mg/dL (8.5-10.3); CREATININE 0.7 mg/dL (0.6-1.2); POTASSIUM 3.4 mmol/L (3.5-5.0)
[2017-04-16 04:59] LABS: EOSINOPHILS % (AUTO) 0.1 %; HCT - HEMATOCRIT 28.2 % (42.0-52.0); HGB - HEMOGLOBIN 9.6 g/dL (14.0-18.0); LYMPHOCYTES % (AUTO) 3.8 %; MEAN CORPUSCULAR HEMOGLOBIN 36.7 pg (27.0-31.0); MEAN CORPUSCULAR HGB CONC 34.1 g/dL (32.0-36.0); MEAN CORPUSCULAR VOLUME 107.7 fL (80.0-94.0); MEAN PLATELET VOLUME 9.8 fL (7.4-11.4); MONOCYTES % (AUTO) 2.7 %; NEUTROPHILS % (AUTO) 93.4 %; RED BLOOD COUNT 2.62 10^6/uL (4.70-6.10); RED CELL DISTRIBUTION WIDTH 14.7 % (12.0-15.0); UNCORRECTED WHITE BLOOD COUNT 4.8 x10^3/uL; WHITE BLOOD COUNT 4.8 x10^3/uL (4.8-10.8)
[2017-04-16] MEDS: ENOXAPARIN 60 MG/0.6 ML SYRINGE SUBQ SCH ×2 (05:51→16:35)
[2017-04-16] MEDS: PIPERACILLIN/TAZOBACTAM 3.375 GM in SODIUM CHLORIDE 0.9% MINIBAG 100 ML IV SCH ×2 (05:51→13:47)
[2017-04-16] MEDS: SODIUM CHLORIDE FLUSH 0.9% 10 ML SYRINGE IVP SCH ×3 (05:52→21:57)
[2017-04-16] MEDS: POTASSIUM CHLOR 20 MEQ/100 ML 100 ML IV SCH ×2 (06:03→08:16)
[2017-04-16 06:12] LABS: BAND NEUTROPHILS % (MANUAL) 24 %; LYMPHOCYTES % (MANUAL) 8 %; NEUTROPHILS % (MANUAL) 65 %; TOTAL CELLS COUNTED 100
[2017-04-16 06:23] LABS: NP AUTO DIFFERENTIAL? YES; NP MAN DIFFERENTIAL? NO; PLATELET ESTIMATE, MANUAL DECREASED (<130,000) (NORMAL); PLATELET MORPHOLOGY 1+ LARGE PLATELETS (NORMAL)
[2017-04-16] MEDS: PANTOPRAZOLE 40 MG VIAL IVP SCH (06:38)
[2017-04-16 06:42] LABS: MAGNESIUM 1.8 mg/dL (1.7-2.8); PHOSPHORUS 3.5 mg/dL (2.5-4.6)
--- NOTE | 2017-04-16 08:14 | PROVIDER PROGRESS NOTE ---
Subjective - Prog Note Date Prog Note Date: 04/16/17 Prog Note Time: 09:08 - Subjective Subjective: Copious and copious amounts of phlegm are being produced. He really was struggling to breathe last night. The notch was felt he may need to be intubated. The patient was adamant that he did not want that. Intubation would also be problematic because of the tracheal cancer. He was initially refusing to take the racemic epi, and finally agreed to it. Between the racemic epi and the atropine they were able to slow down secretions enough to make him comfortable for now This morning he is exhausted. Rolled over on his right side with tachypnea. He doesn't even have the energy to open his eyes and speaks to me today Current Medications - Current Medications Current Medications: Active Medications Acetaminophen (Tylenol) 650 mg PO Q4HR PRN PRN Reason: Pain 1 to 4 Acetaminophen/Hydrocodone Bitart ([place] 5/325) 1 tab PO Q4HR PRN PRN Reason: Pain 5 to 7 Albuterol () 2.5 mg INH Q4HR PRN PRN Reason: Wheezing Last Admin: 04/15/17 22:20 Dose: 2.5 mg Enoxaparin Sodium (Lovenox) 60 mg SUBQ Q12H [facility] Last Admin: 04/16/17 05:51 Dose: 60 mg Hydromorphone HCl (Dilaudid Inj) 1 mg IVP Q2HR PRN PRN Reason: Pain 8 to 10 Sodium Chloride (Normal Saline 0.9%) 1,000 mls @ 100 mls/hr IV .Q10H [facility] Last Admin: 04/15/17 20:32 Dose: 100 mls/hr Piperacillin Sod/Tazobactam (Sod 3.375 gm/ Sodium Chloride) 100 mls @ 25 mls/ hr IV Q8H [facility] Last Admin: 04/16/17 05:51 Dose: 25 mls/hr Norepinephrine Bitartrate 8 mg (/ Dextrose) 250 mls @ 15 mls/hr IV .[id number] [facility]Z ; 8 MCG/MIN PRN Reason: Protocol Last Admin: 04/16/17 06:25 Dose: Not Given Vancomycin HCl 1 gm/ Sodium (Chloride) 250 mls @ 166.667 mls/hr IV Q12H [facility] Last Admin: 04/15/17 19:44 Dose: 166.667 mls/hr Potassium Chloride (Potassium Chloride) 100 mls @ 50 mls/hr IV Q2H [facility]Z PRN Reason: Protocol Stop: 04/16/17 09:59 Last Admin: 04/16/17 06:03 Dose: 50 mls/hr Lorazepam (Ativan Intensol) 1 mg PO Q4HR PRN PRN Reason: Anxiety Last Admin: 04/16/17 01:23 Dose: 1 mg Morphine Sulfate (Roxanol) 10 mg PO Q2HR PRN PRN Reason: PAIN Ondansetron HCl (Zofran Odt) 4 mg TL Q6HR PRN PRN Reason: Nausea / Vomiting Ondansetron HCl (Zofran Inj) 4 mg IVP Q6HR PRN PRN Reason: Nausea / Vomiting Pantoprazole Sodium (Protonix) 40 mg IVP QDAC [facility] Last Admin: 04/16/17 06:38 Dose: 40 mg Scopolamine HBr (Transderm-Scop) 1 patch TOP Q3D [facility] Last Admin: 04/15/17 23:46 Dose: 1 patch Sodium Chloride (Normal Saline Flush 0.9%) 10 ml IVP PRN PRN PRN Reason: NEEDED PER PROVIDER ORDERS Sodium Chloride (Normal Saline Flush 0.9%) 10 ml IVP Q8HR [facility] Last Admin: 04/16/17 05:52 Dose: 10 ml Multivitamin [Multi-Vitamin Daily] 1 each PO DAILY 03/27/13 raNITIdine [Zantac] 150 mg PO BID 02/20/17 Albuterol Sulf [Ventolin Hfa Inhaler] 2 puffs INH Q4HR PRN 03/21/17 Lisinopril 10 mg PO DAILY 04/14/17 Tamsulosin HCl [Tamsulosin HCl] 0.5 mg PO DAILY 04/14/17 Objective - Vital Signs/Intake & Output Reviewed Vital Signs: Yes Vital Signs: Vital Signs Temp Pulse Resp BP Pulse Ox 04/16/17 07:21 36.4 C L 94 21 103/45 L 95 04/16/17 07:00 92 18 98/47 L 94 04/16/17 06:00 95 22 101/44 L 94 04/16/17 05:00 101 H 24 124/55 L 92 Intake & Output: Intake & Output 06/01/04/14/17 04/15/17 04/16/17 23:59 23:59 23:59 23:59 Intake Total 1243 3992 830 Output Total 690 1200 200 Balance 553 6662 630 - Objective General Appearance: positive: Moderate distress, Other (lean cachectic white male rolled onto right side, eyes closed, responds to voice and will answer but not talking today. He's usually sitting up for me, today too tired and exhausted ) Eyes Bilateral: positive: PERRL, EOMI ENT: positive: Dry mucous membranes, Other (hasn't had a voice since admit and whispers if speaks) Neck: positive: Lymphadenopathy (R), Lymphadenopathy (L). negative: Stiff neck , Carotid bruit Respiratory: positive: Rales, Rhonchi (diffuse and associated with stridor), Other (fast shallow respirations) Cardiovascular: positive: Regular rate & rhythm, Tachycardia (occasionally), Systolic murmur. negative: Gallop/S4, Friction rub Abdomen: positive: Non-tender, Nml bowel sounds. negative: Guarding, Rebound Skin: positive: Warm, Dry, Pallor Extremities: positive: Pedal edema Neurologic/Psychiatric: positive: Oriented x3, CN's nml (2-12), Motor nml, Weakness, Slurred/abnml speech - Lab Results Fish Bones: 04/16/17 04:27 04/16/17 04:27 Other Labs: Lab Results x24hrs 04/16/17 04/16/17 04/16/17 Range/Units 04:27 04:27 04:27 WBC 4.8 (4.8-10.8) x10^3/uL RBC 2.62 L (4.70-6.10) 10^6/uL Hgb 9.6 L (14.0-18.0) g/dL Hct 28.2 L (42.0-52.0) % MCV 107.7 H (80.0-94.0) fL MCH 36.7 H (27.0-31.0) pg MCHC 34.1 (32.0-36.0) g/dL RDW 14.7 (12.0-15.0) % Plt Count 36 L (130-450) 10^3/uL MPV 9.8 (7.4-11.4) fL Reticulocyte % (Auto) (0.5-2.3) % Neut # Not Reportable Lymph # Not Reportable [place] # Not Reportable Eos # Not Reportable Baso # Not Reportable Absolute Nucleated RBC Not Reportable Total Counted 100 Band Neuts % (Manual) 24 H (0 - 10) % Neutrophils # (Manual) 4.3 (1.5-6.6) 10^3/uL Lymphocytes # (Manual) 0.4 L (1.5-3.5) 10^3/uL Monocytes # (Manual) 0.1 (0.0-1.0) 10^3/uL Nucleated RBCs Not Reportable Differential Comment MANUAL DIFFERENTIAL Platelet Estimate DECREASED (<130,000) (NORMAL) Platelet Morphology 1+ LARGE PLATELETS (NORMAL) RBC Morph Micro Appear 1+ ANISOCYTOSIS (NORMAL) Absolute Retic (0.020-0.110) 10^6/uL Sodium 129 L (135-145) mmol/L Potassium 3.4 L (3.5-5.0) mmol/L Chloride 94 L (101-111) mmol/L Carbon Dioxide 26 (21-32) mmol/L Anion Gap 9.0 (6-13) BUN 14 (6-20) mg/dL Creatinine 0.7 (0.6-1.2) mg/dL Estimated GFR (MDRD) 109 (>89) Glucose 128 H (70-100) mg/dL Calcium 7.1 L (8.5-10.3) mg/dL Phosphorus 3.5 (2.5-4.6) mg/dL Magnesium 1.8 (1.7-2.8) mg/dL Iron (45-182) ug/dL TIBC (250-450) ug/dL % Saturation (20-50) % Transferrin (180-329) mg/dL Ferritin (23.9-336.2) ng/mL Lactate Dehydrogenase (91-225) IU/L Albumin 2.0 L (3.2-5.5) g/dL Vitamin B12 (180-914) pg/mL 04/15/17 04/15/17 04/15/17 Range/Units 11:56 11:56 11:56 WBC (4.8-10.8) x10^3/uL RBC (4.70-6.10) 10^6/uL Hgb (14.0-18.0) g/dL Hct (42.0-52.0) % MCV (80.0-94.0) fL MCH (27.0-31.0) pg MCHC (32.0-36.0) g/dL RDW (12.0-15.0) % Plt Count (130-450) 10^3/uL MPV (7.4-11.4) fL Reticulocyte % (Auto) (0.5-2.3) % Neut # Lymph # [place] # Eos # Baso # Absolute Nucleated RBC Total Counted Band Neuts % (Manual) (0 - 10) % Neutrophils # (Manual) (1.5-6.6) 10^3/uL Lymphocytes # (Manual) (1.5-3.5) 10^3/uL Monocytes # (Manual) (0.0-1.0) 10^3/uL Nucleated RBCs Differential Comment Platelet Estimate (NORMAL) Platelet Morphology (NORMAL) RBC Morph Micro Appear (NORMAL) Absolute Retic (0.020-0.110) 10^6/uL Sodium (135-145) mmol/L Potassium (3.5-5.0) mmol/L Chloride (101-111) mmol/L Carbon Dioxide (21-32) mmol/L Anion Gap (6-13) BUN (6-20) mg/dL Creatinine (0.6-1.2) mg/dL Estimated GFR (MDRD) (>89) Glucose (70-100) mg/dL Calcium (8.5-10.3) mg/dL Phosphorus (2.5-4.6) mg/dL Magnesium (1.7-2.8) mg/dL Iron 8 L (45-182) ug/dL TIBC 147 L (250-450) ug/dL % Saturation 5 L (20-50) % Transferrin 105 L (180-329) mg/dL Ferritin 977.3 H (23.9-336.2) ng/mL Lactate Dehydrogenase 72 L (91-225) IU/L Albumin (3.2-5.5) g/dL Vitamin B12 3263 H (180-914) pg/mL 04/15/17 Range/Units 11:56 WBC (4.8-10.8) x10^3/uL RBC 2.46 L (4.70-6.10) 10^6/uL Hgb (14.0-18.0) g/dL Hct (42.0-52.0) % MCV (80.0-94.0) fL MCH (27.0-31.0) pg MCHC (32.0-36.0) g/dL RDW (12.0-15.0) % Plt Count (130-450) 10^3/uL MPV (7.4-11.4) fL Reticulocyte % (Auto) 2.20 (0.5-2.3) % Neut # Lymph # [place] # Eos # Baso # Absolute Nucleated RBC Total Counted Band Neuts % (Manual) (0 - 10) % Neutrophils # (Manual) (1.5-6.6) 10^3/uL Lymphocytes # (Manual) (1.5-3.5) 10^3/uL Monocytes # (Manual) (0.0-1.0) 10^3/uL Nucleated RBCs Differential Comment Platelet Estimate (NORMAL) Platelet Morphology (NORMAL) RBC Morph Micro Appear (NORMAL) Absolute Retic 0.054 (0.020-0.110) 10^6/uL Sodium (135-145) mmol/L Potassium (3.5-5.0) mmol/L Chloride (101-111) mmol/L Carbon Dioxide (21-32) mmol/L Anion Gap (6-13) BUN (6-20) mg/dL Creatinine (0.6-1.2) mg/dL Estimated GFR (MDRD) (>89) Glucose (70-100) mg/dL Calcium (8.5-10.3) mg/dL Phosphorus (2.5-4.6) mg/dL Magnesium (1.7-2.8) mg/dL Iron (45-182) ug/dL TIBC (250-450) ug/dL % Saturation (20-50) % Transferrin (180-329) mg/dL Ferritin (23.9-336.2) ng/mL Lactate Dehydrogenase (91-225) IU/L Albumin (3.2-5.5) g/dL Vitamin B12 (180-914) pg/mL Assessment/Plan - Problem List (1) Atrial fibrillation with RVR Impression: presented with cough, chronic sob for weeks and acutely worsened. In ER no response to dilt., cardioverted and had hypotension with etomidate, versed, propofol. Needed temporary levophed. now in sinus. rate is controlled. on no meds for now. if afib recurs may need amiodarone. ECHO without RV strain and nml right ventricle pressures. B/L mild atrial enlargement No significant valvular heart disease. EF is nml. (2) Hypotension Impression: was on levophed for a few hours. Off of it since speech and language clinician of 04/15. right now BP 95 to 105 to 124 systolic off levophed. Qualifiers: Hypotension type: hypotension due to drug Qualified Code(s): I95.2 - Hypotension due to drugs (3) Pneumonia Impression: Day #3 of Zosyn. Vancomycin added next day so Day #2 Gram stain with many gram neg Respiratory culture with gram neg bacillus on culture and occ GPC. ID and sensitivity pending. will adjust abx as needed. no other changes for now. still hypoxic with this and has struggle to breath. teetering on edge of respiratory failure and barely holding on. spoke at length to he and . was willing to be intubated if needed yesterday early but last night and into the speech and language clinician today, he is not. Qualifiers: Pneumonia type: due to other aerobic Gram-negative bacteria Laterality: right Lung location: lower lobe of lung Qualified Code(s): J15.6 - Pneumonia due to other aerobic Gram-negative bacteria (4) Pulmonary embolism Impression: risk of more PE as long as has IVC filled. but there is not more to do other than anticoagulation for now. on lovenox for foreseeable future. platelts are low. After phone call 04/15, Dr. Yanci Lorenz, concrete float maker for Dr. Negron, of Oncology feels that the high dose of lovenox is warranted on basis of clot load. down the road they may reduce to 60mg once a day but for now stay on 60 mg bid. 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 s/p 2 cycles of chemo with carbo,taxotere and xeloda.. Have spoken to Dr. Yanci Lorenz, concrete float maker for Dr. Francis Negron 04/15 (6) Macrocytic anemia Impression: He is iron deficient and B12 normal but he may have bone marrow failure in the face of chemo since he is so macrocytic. No transfusion yet. He's at 9 grams of Hgb but is hypoxic and sob. may consider transfusion earlier . Laboratory Tests 04/15/17 04/15/17 11:56 11:56 Iron 8 L TIBC 147 L Transferrin 105 L Ferritin 977.3 H Vitamin B12 3263 H
[2017-04-16] MEDS: VANCOMYCIN INJ 1 GM in SODIUM CHLORIDE 0.9% 250 ML IV SCH ×2 (08:44→19:36)
[2017-04-16] MEDS: SODIUM CHLORIDE 0.9% 1,000 ML IV SCH ×2 (12:10→15:39)
[2017-04-16] MEDS ORDERED: IRON DEXTRAN 25 MG in SODIUM CHLORIDE 0.9% 50 ML IV ONE (16:06)
[2017-04-16] MEDS ORDERED: IRON DEXTRAN 975 MG in SODIUM CHLORIDE 0.9% 500 ML IV SCH (17:30)
[2017-04-16] MEDS: MORPHINE SOL 10 MG/0.5 ML SYRINGE PO PRN ×2 (19:42→23:24)
[2017-04-16] MEDS: ALBUTEROL NEB 2.5 MG/3 ML INH PRN (19:50)
[2017-04-17] MEDS ORDERED: RACEPINEPHRINE 2.25% NEB INH SCH (00:43)
[2017-04-17] MEDS ORDERED: DEXAMETHASONE 10 MG/ML VIAL IVP SCH (00:44)
[2017-04-17] MEDS ORDERED: DEXAMETHASONE 10 MG/ML VIAL ONE (01:05)
[2017-04-17] MEDS: SODIUM CHLORIDE 0.9% 1,000 ML IV SCH ×3 (01:14→22:53)
[2017-04-17] MEDS ORDERED: SODIUM CHLORIDE INHALATION 3 ML NEB ONE (01:18)
[2017-04-17] MEDS: ENOXAPARIN 60 MG/0.6 ML SYRINGE SUBQ SCH ×2 (05:35→18:36)
[2017-04-17] MEDS: SODIUM CHLORIDE FLUSH 0.9% 10 ML SYRINGE IVP SCH ×3 (05:36→22:01)
[2017-04-17] MEDS: PANTOPRAZOLE 40 MG VIAL IVP SCH (06:57)
[2017-04-17 07:52] LABS: CALCIUM 7.1 mg/dL (8.5-10.3); CREATININE 0.6 mg/dL (0.6-1.2); POTASSIUM 3.8 mmol/L (3.5-5.0)
[2017-04-17] MEDS: VANCOMYCIN INJ 1 GM in SODIUM CHLORIDE 0.9% 250 ML IV SCH ×2 (08:02→20:13)
[2017-04-17 08:09] LABS: BASOPHILS % (AUTO) 0.2 %; HCT - HEMATOCRIT 26.7 % (42.0-52.0); HGB - HEMOGLOBIN 9.5 g/dL (14.0-18.0); LYMPHOCYTES # (AUTO) 0.1 10^3/uL (1.5-3.5); LYMPHOCYTES % (AUTO) 1.7 %; MEAN CORPUSCULAR HEMOGLOBIN 37.3 pg (27.0-31.0); MEAN CORPUSCULAR HGB CONC 35.4 g/dL (32.0-36.0); MEAN CORPUSCULAR VOLUME 105.3 fL (80.0-94.0); MEAN PLATELET VOLUME 10.5 fL (7.4-11.4); MONOCYTES # (AUTO) 0.1 10^3/uL (0.0-1.0); MONOCYTES % (AUTO) 2.5 %; NEUTROPHILS # (AUTO) 4.3 10^3/uL (1.5-6.6); NEUTROPHILS % (AUTO) 95.6 %; NUCLEATED RED BLOOD CELLS AUTO 0.4 /100WBC; RED BLOOD COUNT 2.54 10^6/uL (4.70-6.10); RED CELL DISTRIBUTION WIDTH 14.7 % (12.0-15.0); UNCORRECTED WHITE BLOOD COUNT 4.5 x10^3/uL; WHITE BLOOD COUNT 4.5 x10^3/uL (4.8-10.8)
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
[2017-04-17] MEDS: SENNA 8.6 MG TABLET PO SCH (09:01)
[2017-04-17] MEDS: DOCUSATE SODIUM 250 MG CAPSULE PO SCH (09:01)
[2017-04-17] MEDS: NEUTRA-PHOS 250 MG TABLET PO SCH ×2 (09:03→10:54)
[2017-04-17] MEDS: POLYETHYLENE GLYCOL 3350 17 GM PACKET PO SCH (09:04)
[2017-04-17] MEDS: TAMSULOSIN 0.4 MG CAPSULE PO SCH ×2 (09:05→10:54)
[2017-04-17 09:11] LABS: BAND NEUTROPHILS % (MANUAL) 0 %
[2017-04-17 09:18] LABS: LYMPHOCYTES % (MANUAL) 4 %; NEUTROPHILS % (MANUAL) 91 %; PLATELET ESTIMATE, MANUAL DECREASED (<130,000) (NORMAL); PLATELET MORPHOLOGY 1+ LARGE PLATELETS (NORMAL); TOTAL CELLS COUNTED 100; WBC MORPHOLOGY (MULTIPLE) 1+ TOXIC GRANULATION (NORMAL)
[2017-04-17] MEDS: ALBUTEROL NEB 2.5 MG/3 ML INH PRN (19:30)
[2017-04-17] MEDS: MORPHINE SOL 10 MG/0.5 ML SYRINGE PO PRN (20:25)
[2017-04-18] MEDS: MORPHINE SOL 10 MG/0.5 ML SYRINGE PO PRN ×2 (05:00→20:08)
[2017-04-18] MEDS: ENOXAPARIN 60 MG/0.6 ML SYRINGE SUBQ SCH ×2 (05:15→17:08)
[2017-04-18] MEDS: SODIUM CHLORIDE FLUSH 0.9% 10 ML SYRINGE IVP SCH ×2 (05:17→14:18)
[2017-04-18 06:25] LABS: BASOPHILS % (AUTO) 0.4 %; HCT - HEMATOCRIT 27.9 % (42.0-52.0); HGB - HEMOGLOBIN 9.6 g/dL (14.0-18.0); LYMPHOCYTES # (AUTO) 0.3 10^3/uL (1.5-3.5); LYMPHOCYTES % (AUTO) 6.7 %; MEAN CORPUSCULAR HEMOGLOBIN 36.8 pg (27.0-31.0); MEAN CORPUSCULAR HGB CONC 34.5 g/dL (32.0-36.0); MEAN CORPUSCULAR VOLUME 106.9 fL (80.0-94.0); MEAN PLATELET VOLUME 10.2 fL (7.4-11.4); MONOCYTES # (AUTO) 0.2 10^3/uL (0.0-1.0); MONOCYTES % (AUTO) 4.3 %; NEUTROPHILS # (AUTO) 4.1 10^3/uL (1.5-6.6); NEUTROPHILS % (AUTO) 88.6 %; NUCLEATED RED BLOOD CELLS AUTO 0.4 /100WBC; RED BLOOD COUNT 2.61 10^6/uL (4.70-6.10); RED CELL DISTRIBUTION WIDTH 15.1 % (12.0-15.0); UNCORRECTED WHITE BLOOD COUNT 4.6 x10^3/uL; WHITE BLOOD COUNT 4.6 x10^3/uL (4.8-10.8)
[2017-04-18] MEDS: PANTOPRAZOLE 40 MG VIAL IVP SCH (06:29)
[2017-04-18 06:43] LABS: MAGNESIUM 1.8 mg/dL (1.7-2.8); PHOSPHORUS 1.6 mg/dL (2.5-4.6)
[2017-04-18] MEDS ORDERED: POTASSIUM PHOSPHATE 15 MMOL in SODIUM CHLORIDE 0.9% 250 ML IV ONE (07:05)
[2017-04-18] MEDS: SODIUM CHLORIDE 0.9% 1,000 ML IV SCH ×2 (08:25→17:17)
[2017-04-18] MEDS: VANCOMYCIN INJ 1 GM in SODIUM CHLORIDE 0.9% 250 ML IV SCH ×2 (08:31→20:13)
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
[2017-04-18 09:28] LABS: ALBUMIN/GLOBULIN RATIO 0.5 (1.0-2.2); BILIRUBIN,TOTAL 0.8 mg/dL (0.2-1.0); BUN - BLOOD UREA NITROGEN 9 mg/dL (6-20); CALCIUM 7.4 mg/dL (8.5-10.3); CARBON DIOXIDE - CO2 33 mmol/L (21-32); CHLORIDE 93 mmol/L (101-111); CREATININE 0.5 mg/dL (0.6-1.2); GFR - MDRD 161 (>89); GLUCOSE 121 mg/dL (70-100); POTASSIUM 3.9 mmol/L (3.5-5.0); SODIUM 131 mmol/L (135-145); TOTAL PROTEIN 5.2 g/dL (6.7-8.2)
[2017-04-18] MEDS: ALBUTEROL NEB 2.5 MG/3 ML INH PRN ×3 (09:40→20:33)
[2017-04-18 09:52] LABS: VBG PH 7.409 (7.31-7.41)
[2017-04-18 09:53] LABS: CALCIUM, IONIZED 1.05 mmol/L (1.15-1.33)
[2017-04-18] MEDS: POLYETHYLENE GLYCOL 3350 17 GM PACKET PO SCH (09:57)
[2017-04-18] MEDS: TAMSULOSIN 0.4 MG CAPSULE PO SCH (09:57)
[2017-04-18] MEDS: SENNA 8.6 MG TABLET PO SCH (09:57)
[2017-04-18] MEDS: DOCUSATE SODIUM 250 MG CAPSULE PO SCH (09:57)
--- NOTE | 2017-04-18 10:26 | XRAY Report ---
FRONTAL CHEST: 04/18/2017 CLINICAL INDICATION: Followup pneumonia. COMPARISON: 04/15/2017 FINDINGS: Frontal view of the chest demonstrates a normal cardiac silhouette. Right basilar consoli dation persists, and right upper lobe consolidation has increased. Small bilateral effusions are now present. No pneumothorax. IMPRESSION: INCREASING RIGHT-SIDED INFILTRATES. SMALL EFFUSIONS. JOB #: [id number] EXT JOB #:[id number]
[2017-04-18] MEDS: A & D OINTMENT 5 GM PACKET TOP ONE ×2 (12:24→15:39)
[2017-04-19] MEDS: SODIUM CHLORIDE 0.9% 1,000 ML IV SCH ×4 (00:05→23:08)
[2017-04-19] MEDS: SODIUM CHLORIDE FLUSH 0.9% 10 ML SYRINGE IVP SCH ×4 (00:05→23:09)
[2017-04-19] MEDS: SCOPOLAMINE PATCH TOP SCH (00:06)
[2017-04-19] MEDS: ENOXAPARIN 60 MG/0.6 ML SYRINGE SUBQ SCH (05:12)
[2017-04-19 05:17] LABS: BASOPHILS % (AUTO) 0.3 %; HCT - HEMATOCRIT 27.4 % (42.0-52.0); HGB - HEMOGLOBIN 9.4 g/dL (14.0-18.0); LYMPHOCYTES % (AUTO) 6.6 %; MEAN CORPUSCULAR HEMOGLOBIN 36.5 pg (27.0-31.0); MEAN CORPUSCULAR HGB CONC 34.4 g/dL (32.0-36.0); MEAN CORPUSCULAR VOLUME 106.1 fL (80.0-94.0); MEAN PLATELET VOLUME 9.4 fL (7.4-11.4); NEUTROPHILS % (AUTO) 90.1 %; RED BLOOD COUNT 2.59 10^6/uL (4.70-6.10); RED CELL DISTRIBUTION WIDTH 14.8 % (12.0-15.0); UNCORRECTED WHITE BLOOD COUNT 3.6 x10^3/uL; WHITE BLOOD COUNT 3.6 x10^3/uL (4.8-10.8)
[2017-04-19 05:27] LABS: ALBUMIN/GLOBULIN RATIO 0.5 (1.0-2.2); BILIRUBIN,TOTAL 0.5 mg/dL (0.2-1.0); BUN - BLOOD UREA NITROGEN 9 mg/dL (6-20); CALCIUM 7.1 mg/dL (8.5-10.3); CARBON DIOXIDE - CO2 34 mmol/L (21-32); CHLORIDE 91 mmol/L (101-111); CREATININE 0.5 mg/dL (0.6-1.2); GFR - MDRD 161 (>89); GLUCOSE 116 mg/dL (70-100); POTASSIUM 3.6 mmol/L (3.5-5.0); SODIUM 132 mmol/L (135-145); TOTAL PROTEIN 4.8 g/dL (6.7-8.2)
[2017-04-19 05:28] LABS: MAGNESIUM 1.8 mg/dL (1.7-2.8); PHOSPHORUS 1.9 mg/dL (2.5-4.6)
[2017-04-19 05:33] LABS: CALCIUM, IONIZED 1.05 mmol/L (1.15-1.33); VBG PH 7.433 (7.31-7.41)
[2017-04-19 05:53] LABS: BAND NEUTROPHILS % (MANUAL) 14 %; LYMPHOCYTES % (MANUAL) 8 %; NEUTROPHILS % (MANUAL) 77 %; NP AUTO DIFFERENTIAL? YES; NP MAN DIFFERENTIAL? NO; PLATELET ESTIMATE, MANUAL DECREASED (<130,000) (NORMAL); TOTAL CELLS COUNTED 100
[2017-04-19] MEDS ORDERED: POTASSIUM PHOSPHATE 15 MMOL in SODIUM CHLORIDE 0.9% 250 ML IV SCH (06:46)
[2017-04-19] MEDS: PANTOPRAZOLE 40 MG VIAL IVP SCH (06:59)
--- NOTE | 2017-04-19 07:58 | PROVIDER PROGRESS NOTE ---
Assessment/Plan - Problem List (1) Atrial fibrillation with RVR Assessment/Plan: He is rate controlled presently. Will continue present meds. (2) Pneumonia Assessment/Plan: He isworse. O2 needs highwer up to 14 liters in night. Now on 12 liters with O2 sat 94% Re eval Pneumonia, was worse on CXR yesterday and clearly from FIO2 has continued to get worse. Will change antibiotics give broader GM - coverage. switch Leva digna to Cefipime. (3) Pulmonary embolism Assessment/Plan: In a challenging situation with his PEs and dropping platelets. Sice now down to 21K will stop his Enoxaprin. - Current Meds Current Meds: Current Medications Generic Name Dose Route Start Last Admin Trade Name Freq PRN Reason Stop Dose Admin Albuterol 2.5 mg 04/14/17 12:43 04/18/17 20:33 INH 2.5 mg Q4HR PRN Administration Wheezing Docusate Sodium 250 - 500 mg 04/17/17 09:00 04/18/17 09:57 Colace 250mg Capsule PO 500 mg DAILY LIZ Administration Enoxaparin Sodium 60 mg 04/14/17 17:30 04/19/17 05:12 Lovenox SUBQ 60 mg Q12H LIZ Administration Sodium Chloride 1,000 mls @ 100 mls/hr 04/14/17 13:00 04/19/17 00:05 Normal Saline 0.9% IV 100 mls/hr .Q10H LIZ Administration Norepinephrine Bitartrate 8 mg 250 mls @ 15 mls/hr 04/14/17 14:00 04/18/17 17: 07 / Dextrose IV Not Given .[id number] LIZ Protocol 8 MCG/MIN Vancomycin HCl 1 gm/ Sodium 250 mls @ 166.667 mls/hr 04/15/17 20:00 04/18/17 20 :13 Chloride IV 166.667 mls/hr Q12H LIZ Administration Levofloxacin 150 mls @ 100 mls/hr 04/16/17 17:00 04/18/17 17:07 Levaquin 750 Mg/150 Ml IV 100 mls/hr Q24H LIZ Administration Lorazepam 1 mg 04/16/17 00:45 04/16/17 01:23 Ativan Intensol PO 1 mg Q4HR PRN Administration Anxiety Morphine Sulfate 10 mg 04/16/17 00:45 04/18/17 20:08 Roxanol PO 10 mg Q2HR PRN Administration PAIN Pantoprazole Sodium 40 mg 04/15/17 07:00 04/19/17 06:59 Protonix IVP 40 mg QDAC LIZ Administration Polyethylene Glycol 17 gm 04/17/17 09:00 04/18/17 09:57 Miralax PO 17 gm DAILY LIZ Administration Scopolamine HBr 1 patch 04/15/17 23:00 04/19/17 00:06 Transderm-Scop TOP 1 patch Q3D LIZ Administration Senna 8.6 - 17.2 mg 04/17/17 09:00 04/18/17 09:57 Senokot PO 17.2 mg DAILY LIZ Administration Sodium Chloride 10 ml 04/14/17 14:00 04/19/17 05:10 Normal Saline Flush 0.9% IVP 10 ml Q8HR LIZ Administration Tamsulosin HCl 0.5 mg 04/17/17 09:00 04/18/17 09:57 Flomax PO 0.4 mg DAILY LIZ Administration - Lab Result Fish Bone Diagrams: 04/19/17 05:05 04/19/17 05:05 - Additional Planning My Orders: My Active Orders 04/19/17 08:00 Neutra-Phos [K-Phos Neutral] 250 mg PO Q2H Subjective - Subjective Patient Reports: Resting Comfortably Nursing Reports: Shortness of Breath Objective Vital Signs: Vital Signs - 24 hr 04/18/17 04/18/17 04/18/17 08:46 09:31 09:40 Temperature Heart Rate 93 Heart Rate [ 92 93 Monitoring electrodes] Respiratory 16 19 14 Rate Blood Pressure 131/59 H 151/63 H [Right Brachial artery] O2 Saturation 99 94 04/18/17 04/18/17 04/18/17 10:29 12:00 12:35 Temperature Heart Rate Heart Rate [ 97 99 97 Monitoring electrodes] Respiratory 18 28 H 19 Rate Blood Pressure 150/73 H 121/61 134/79 H [Right Brachial artery] O2 Saturation 92 92 92 04/18/17 04/18/17 04/18/17 13:37 14:41 14:50 Temperature Heart Rate 91 Heart Rate [ 93 92 Monitoring electrodes] Respiratory 23 15 20 Rate Blood Pressure 121/54 L 106/53 L [Right Brachial artery] O2 Saturation 90 L 95 04/18/17 04/18/17 04/18/17 16:00 17:00 18:00 Temperature 36.7 C Heart Rate Heart Rate [ 95 93 93 Monitoring electrodes] Respiratory 20 15 16 Rate Blood Pressure 114/48 L 115/45 L 102/52 L [Right Brachial artery] O2 Saturation 97 97 95 04/18/17 04/18/17 04/18/17 19:00 20:00 20:33 Temperature 36.7 C Heart Rate 91 Heart Rate [ 95 90 Monitoring electrodes] Respiratory 22 19 16 Rate Blood Pressure 123/54 L 127/63 [Right Brachial artery] O2 Saturation 94 92 04/18/17 04/18/17 04/19/17 21:00 23:13 00:00 Temperature 36.6 C Heart Rate Heart Rate [ 89 87 96 Monitoring electrodes] Respiratory 16 15 18 Rate Blood Pressure 131/59 H 114/48 L 130/60 [Right Brachial artery] O2 Saturation 97 100 95 04/19/17 04/19/17 04/19/17 01:00 02:00 04:00 Temperature 36.6 C Heart Rate Heart Rate [ 93 92 90 Monitoring electrodes] Respiratory 18 15 16 Rate Blood Pressure 116/67 124/66 139/54 H [Right Brachial artery] O2 Saturation 99 99 99 04/19/17 04/19/17 04/19/17 05:00 06:00 07:00 Temperature Heart Rate Heart Rate [ 97 88 90 Monitoring electrodes] Respiratory 15 16 16 Rate Blood Pressure 149/40 H 128/63 127/52 L [Right Brachial artery] O2 Saturation 95 99 100 Oxygen O2 Source Oxymask I&O (Last 24 Hrs): Intake and Output Totals x24h 04/17/17 04/18/17 04/19/17 23:59 23:59 23:59 Intake Total 4805 3544 800 Output Total 600 1175 1450 Balance 4205 4750 -650 General: Alert, Cooperative HEENT: PERRLA, EOMI Neck: No JVD Neuro: Alert, Non Focal Cardiovascular: Other (A fib) Respiratory: Rales, Rhonchi Abdomen: Normal bowel sounds, Soft Extremities: No cyanosis, No edema, Normal pulses - Results Results: Laboratory Results WBC 3.6 x10^3/uL (4.8-10.8) L 04/19/17 05:05 RBC 2.59 10^6/uL (4.70-6.10) L 04/19/17 05:05 Hgb 9.4 g/dL (14.0-18.0) L 04/19/17 05:05 Hct 27.4 % (42.0-52.0) L 04/19/17 05:05 MCV 106.1 fL (80.0-94.0) H 04/19/17 05:05 MCH 36.5 pg (27.0-31.0) H 04/19/17 05:05 MCHC 34.4 g/dL (32.0-36.0) 04/19/17 05:05 RDW 14.8 % (12.0-15.0) 04/19/17 05:05 Plt Count 21 10^3/uL (130-450) L* 04/19/17 05:05 MPV 9.4 fL (7.4-11.4) 04/19/17 05:05 Reticulocyte % (Auto) 2.20 % (0.5-2.3) 04/15/17 11:56 Neut # Not Reportable 04/19/17 05:05 Lymph # Not Reportable 04/19/17 05:05 [place] # Not Reportable 04/19/17 05:05 Eos # Not Reportable 04/19/17 05:05 Baso # Not Reportable 04/19/17 05:05 Absolute Nucleated RBC Not Reportable 04/19/17 05:05 Total Counted 100 04/19/17 05:05 Band Neuts % (Manual) 14 % (0-10) H 04/19/17 05:05 Metamyelocytes % 2 % (-0) H 04/17/17 07:05 Neutrophils # (Manual) 3.3 10^3/uL (1.5-6.6) 04/19/17 05:05 Lymphocytes # (Manual) 0.3 10^3/uL (1.5-3.5) L 04/19/17 05:05 Monocytes # (Manual) 0.0 10^3/uL (0.0-1.0) 04/19/17 05:05 Nucleated RBCs Not Reportable 04/19/17 05:05 Differential Comment MANUAL DIFFERENTIAL 04/19/17 05:05 Manual Slide Review Indicated 04/17/17 07:05 WBC Morphology 1+ TOXIC GRANULATION (NORMAL) 04/17/17 07:05 Platelet Estimate DECREASED (<130,000) (NORMAL) 04/19/17 05:05 Platelet Morphology 1+ LARGE PLATELETS (NORMAL) 04/17/17 07:05 RBC Morph Micro Appear 1+ TARGET CELLS (NORMAL) 1+ EVELYN CELLS (NORMAL) 01/27 04:48 RBC Morph Micro Appear 1+ ANISOCYTOSIS (NORMAL) 04/16/17 04:27 RBC Morph Micro Appear 1+ ANISOCYTOSIS (NORMAL) 04/17/17 07:05 RBC Morph Micro Appear NORMAL APPEARANCE (NORMAL) 04/19/17 05:05 Absolute Retic 0.054 10^6/uL (0.020-0.110) 04/15/17 11:56 VBG pH 7.433 (7.31-7.41) H 04/19/17 05:05 Ionized Calcium 1.05 mmol/L (1.15-1.33) L 04/19/17 05:05 Sodium 132 mmol/L (135-145) L 04/19/17 05:05 Potassium 3.6 mmol/L (3.5-5.0) 04/19/17 05:05 Chloride 91 mmol/L (101-111) L 04/19/17 05:05 Carbon Dioxide 34 mmol/L (21-32) H 04/19/17 05:05 Anion Gap 7.0 (6-13) 04/19/17 05:05 BUN 9 mg/dL (6-20) 04/19/17 05:05 Creatinine 0.5 mg/dL (0.6-1.2) L 04/19/17 05:05 Estimated GFR (MDRD) 161 (>89) 04/19/17 05:05 Glucose 116 mg/dL (70-100) H 04/19/17 05:05 Lactic Acid 1.9 mmol/L (0.5-2.2) 04/14/17 10:45 Calcium 7.1 mg/dL (8.5-10.3) L 04/19/17 05:05 Ionized Calcium YES 04/19/17 05:05 Phosphorus 1.9 mg/dL (2.5-4.6) L 04/19/17 05:05 Magnesium 1.8 mg/dL (1.7-2.8) 04/19/17 05:05 Iron 8 ug/dL (45-182) L 04/15/17 11:56 TIBC 147 ug/dL (250-450) L 04/15/17 11:56 % Saturation 5 % (20-50) L 04/15/17 11:56 Transferrin 105 mg/dL (180-329) L 04/15/17 11:56 Ferritin 977.3 ng/mL (23.9-336.2) H 04/15/17 11:56 Total Bilirubin 0.5 mg/dL (0.2-1.0) 04/19/17 05:05 AST 25 IU/L (10-42) 04/19/17 05:05 ALT 23 IU/L (10-60) 04/19/17 05:05 Alkaline Phosphatase 42 IU/L (42-121) 04/19/17 05:05 Lactate Dehydrogenase 72 IU/L (91-225) L 04/15/17 11:56 Troponin I < 0.04 ng/mL (<0.49) 04/14/17 09:26 B-Natriuretic Peptide 279 pg/mL (5-100) H 04/14/17 09:26 Total Protein 4.8 g/dL (6.7-8.2) L 04/19/17 05:05 Albumin 1.7 g/dL (3.2-5.5) L 04/19/17 05:05 Globulin 3.1 g/dL (2.1-4.2) 04/19/17 05:05 Albumin/Globulin Ratio 0.5 (1.0-2.2) L 04/19/17 05:05 Vitamin B12 3263 pg/mL (180-914) H 04/15/17 11:56 Last Dose Date K 04/17/17 07:05 Last Dose Time [facility] 04/17/17 07:05 Vancomycin Trough 12.7 ug/mL (5.0-15.0) 04/17/17 07:05 - Procedures Procedures: Procedures EXCISION OF UPPER ESOPHAGUS, ENDO, DIAGN (02/24/17) INSERTION OF INFUSION DEV INTO SUP VENA CAVA, PERC APPROACH (02/24/17) OTHER ENDOSCOPY OF SM INTEST (07/04/14)
[2017-04-19] MEDS: NEUTRA-PHOS 250 MG TABLET PO SCH ×2 (09:55→11:21)
[2017-04-19] MEDS: CEFEPIME 2 GM in SODIUM CHLORIDE 0.9% MINIBAG 100 ML IV SCH ×2 (09:56→21:08)
[2017-04-19] MEDS: VANCOMYCIN INJ 1 GM in SODIUM CHLORIDE 0.9% 250 ML IV SCH ×2 (09:56→20:03)
[2017-04-19] MEDS: DOCUSATE SODIUM 250 MG CAPSULE PO SCH (09:56)
[2017-04-19] MEDS: SENNA 8.6 MG TABLET PO SCH (09:57)
[2017-04-19] MEDS: POLYETHYLENE GLYCOL 3350 17 GM PACKET PO SCH (09:57)
[2017-04-19] MEDS: TAMSULOSIN 0.4 MG CAPSULE PO SCH (09:58)
[2017-04-19] MEDS ORDERED: NEUTRA-PHOS 250 MG TABLET PO SCH (12:00)
[2017-04-19] MEDS: MORPHINE SOL 10 MG/0.5 ML SYRINGE PO PRN ×2 (20:03→22:05)
--- NOTE | 2017-04-19 23:09 | CONSULTATION NOTE ---
DATE OF CONSULTATION: 04/18/2017 00:00:00 REQUESTING PROVIDER: Dr. Sanchez Russo. TIME OF VISIT: 1530 to 1645. TOPIC: Initial palliative care consult. Thank you Dr. Russo for asking palliative care consult service to be involved in the care of your th e patient. I am asked to provide support around advanced care planning and goals of care. Records reviewed: Hospital records, oncology records. 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 He had presented with hoars eness of his voice in 12/2016 with persistent symptoms and had a CT scan of his neck that revealed a s oft tissue mass at the posterior wall of his trachea and his upper thorax with 50% luminal occlusions . He subsequently had a CT scan on 02/10/2017, which showed at 3.3 x 2.5 cm mass in the upper trachea and retrotracheal region. He also had areas of lung consolidation in medial segment of the right mid lobe and inferior lingual region and a bronchoscopy was done with an endobronchial lesion biopsy on 02/15/2017. The patient had initiated chemotherapy for which he has had high symptom burden with anor exia, taste changes and fatigue. He has also had continued weight loss. He presented on 04/14/[address] several days of increased shortness of breath, cough productive of yellow green phlegm. He was di agnosed with atrial fibrillation with rapid ventricular response, pneumonia and a PE. He has been in the ICU with a fairly marbella course, has been poorly responsive to antibiotics and has continued to carmona ve respiratory secretions and needing increasing oxygen and severe fatigue. SYMPTOM BURDEN: The patient denies any pain. He does report severe fatigue. Denies nausea. He has had no appetite for actually several weeks, attributes this to taste changes, even though he does appear to have some respiratory effort he denies feeling severely short of breath or with distress. This is mostly the coughing that is exhausting for him. Currently, he perceives his quality of life as very poor and is feeling quite overwhelmed and wanting to give in. 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 He had undergone chemotherapy and radiation to the esophagea l area with an excellent response. He has actually been disease free for over 5 years. He had had a r ecurrent lesion in 10/2008 for which he underwent radiation. Other diseases hypertension, reflux dise ase, history of tobacco abuse, appendectomy in 1963 and seasonal allergies. ALLERGIES: Naproxen MEDICATION LIST: 1. Acetaminophen 650 mg q.4h. hours p.r.n. pain 1-4. 2. Acetaminophen/hydrocodone 1 tab q.4h, pain 5-7. 3. Albuterol 2.5 mg q.4h. p.r.n. wheezing. 4. Cefepime 2 grams IV b.i.d. 5. Docusate sodium 250 mg 1-2 tabs daily. 6. Hydromorphone 1 mg IV push pain 8-10. 7. Lorazepam 1 mg q.4h. hours p.r.n. anxiety. 8. Morphine sulfate 10 mg q.2h. p.r.n. pain. 9. Norepinephrine bitartrate 8 mg q.16h. 10. Ondansetron 4 mg q.6h. p.r.n. nausea and vomiting. 11. Pantoprazole 40 mg IV push daily. 12. MiraLax 17 grams daily. 13. Scopolamine 1 patch q.3 days. 14. Senna 8.6 to 17.2 mg daily. 15. Sodium chloride normal saline 0.9% running 100 mL per hour. 16. Tamsulosin 0.4 mg daily. 17. Vancomycin 1 gram q.12h. CODE STATUS: THE PATIENT CURRENTLY IS A DO NOT RESUSCITATE. 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 He has retired from the [employer]. He has been flying until several weeks ago. He very much enjo ys his family and is very important to him. No use of alcohol, tobacco. The patient was up to admit still drinking beer from time to time. He was a heavy smoker in the past. FAMILY HISTORY: His mother in the 70s of unknown cause, dad in his 40s. He does have one si ster and 4 children. PERFORMANCE STATUS: The patient has been mostly bedbound since his admit to ICU. He has been able to transfer to the commode with assist. Previous to this he was fairly independent but was getting weake r. He would be totally dependent for ADLs at this point in time. I would put him at a palliative care performance status currently at 30%. REVIEW OF SYSTEMS: ENT: Denies trouble with swallowing, just significant taste changes. Does have hearing loss. CARDIOVASCULAR: Denies chest pain. RESPIRATORY: Has unrelenting cough that is productive of sputum and is using oral suctioning to manag e. Denies acute shortness of breath though appears uncomfortable. GASTROINTESTINAL: Reports constipation, it has been several days, there is quite a bit of pressure, h as not been eating and taking sips of fluid. GENITOURINARY: Voiding. MUSCULOSKELETAL: Very weak. INTEGUMENTARY: He has some bruising, denies pruritus. NEUROLOGIC: He is alert and oriented x3. His voice is weak but able to participate in the conversatio n. Denies any numbness, tingling as results of chemotherapy. PSYCHIATRIC: Feeling somewhat overwhelmed and down. ENDOCRINE: No history of diabetes or hypothyroidism. HEMATOLOGIC/IMMUNOLOGIC: He was presenting as pancytopenic with 14971 platelets, white count 3.6, hem atocrit 27.4 and of note his total protein is 4.8 and albumin 1.7. PHYSICAL EXAMINATION: GENERAL: This is a somewhat limited. GENERAL APPEARANCE: He does appear quite cachectic, sallow in color. He has an oxygen mask on his fac e with a DuoDerm in place, does have respiratory effort. His pulse is weak and thready. EYES: Periorbital edema. ENT: His mucous membranes are somewhat dry. NECK: Trachea is midline. RESPIRATORY: Has rhonchi throughout. CARDIOVASCULAR: His pulse is 96 and tachycardic. ABDOMEN: Quite taut, nontender. Does have distant bowel tones. SKIN: Has a large hematoma on his right hand. EXTREMITIES: He does have third spacing and swelling in his left arm all the way to the fingers, slig ht swelling in his right arm. No swelling in his lower extremities. I am concerned about third spacin g. PALLIATIVE CARE DISCUSSION: Who is present: Myself, the patient, his daughter's Jayro and his grandson Mike and Bettyjennifer Bryant the other palliative care nurse practitioner. The goal was to discuss goals of care. The patient is able to express his feeling overwhelmed and tired, wanting to "go home and go home to the Lord" but is definitely struggling with letting his family down by "giving in". He does recognize the seriousness of his illness and that he has had poor response so far and has had a very difficult time these last few weeks with his chemotherapy. We discussed at length again in the context of a serious condition his wishes and family's concerns for him. They do want to do what is b est for him and are willing to support him. was quite clear it is difficult to have him struggli ng and is more than willing to support him as far as letting go. She reports that she is sad but calm , is a retired RN and the daughters are quite tearful and sad too. We did discuss in the continu um of care what going home would look like, in particularly the support of the hospice team, getting the equipment set up at home, oxygen and medications with the focus that would be on comfort, the sup port as far as 24/7 on-call support, but would be supporting the family as the caregivers. They are e xpecting family to be present for greater than a week. We did discuss accessing his long-term care in [facility] for paid caregivers if indicated, though I suspect, given his condition today we would be steve cheatham at days to weeks, but certainly hoping for the best for quality and quantity of time, but also omid alfred prepared for the worst as far as a care plan in place, including transitioning at the hospital g iven the seriousness of his illness. Obviously he receives much support, a good repoire [facility]. Addressed multiple questions and concerns. At conclusion of the meeting the patient did at this point in time want to choose to go home with hospice, is aware that certainly if things improve he c an make another choice, but the family suspects that really the biggest concern is that he does not w ant to in the hospital. We reviewed experiences in the past with dying. They have had the eva Beckford's mother but she in the hospital as well so limited exposure or experience with an d dying well as hospice. IMPRESSION: This is a everette 76-year-old gentleman who presents with serious complications with seque lae related to his cancer and now pneumonia. He continues to do poorly including respiratory effort, cough, secretions, weight loss, anorexia and ongoing fatigue. Given his goal for to be at home and no t in the hospital for an end of life event, have agreed at this point in time to pursue hospice admit . RECOMMENDATIONS/COUNSELING DONE: 1. Dyspnea. The patient does not perceive distress with this though does present with respiratory eff ort. He has taken morphine previously. He reports that it "trickled down his throat" and found it hel pful. I did encourage as far as when we discussed what comfort measures were to use some medication t o keep himself comfortable and would encourage nursing staff to work with the patient and family to b e able to monitor his response and use it appropriately. Would consider decreasing his IV rate, claude bryan has symptoms of third spacing and mild fluid overload with retention in upper extremeties. 2. Constipation. The patient has received MiraLax and Senna and softener today and he is having incre ased discomfort. Regarding this it would be important for him to have a bowel movement before dischar ge. Would repeat bowel meds in a.m., may need more aggressive intervention though balancing that with low platelets. 3. Advanced care planning. Provided counseling regarding goals of care, transition to hospice, did co ntact Amber Thomas RN, hospice social worker, regarding hospice referral and followup with hospitalist. Maria D clay report needs hospital bed, oral suction, commode, oxygen at high liter flow. They will followup to see what the maximum amount if possible as well as over the bed table. Will get contact information. They will have that delivered tomorrow after confirming the patient still wanting to go in the a.m. W e will need a POLST form as well as BLS transfer early Monday morning to accommodate timely hospice a dmit and get settled for the weekend. Contact was made with Apple, hospice social worker, regarding the outc ome of palliative care meeting. Support was given, as well as provided [facility] [place] [employer] as family members were struggling with patient's decline. Certainly there is ambivalence and again h oping for some quality time, but also recognizing the acuity and seriousness of the situation, which does lend it to some urgency to meet the patient's goal of dying at home. TIME SPENT: 75 minutes with greater than 50% spent in counseling and coordination of care, family jennifer beverly, weighing benefits and burdens of moving forward with hospice and comfort measures and anticipat ory guidance. JOB #: [id number] EXT JOB #:[id number]
[2017-04-20] MEDS: MORPHINE SOL 10 MG/0.5 ML SYRINGE PO PRN ×5 (00:15→22:54)
[2017-04-20 05:15] LABS: BASOPHILS % (AUTO) 0.3 %; EOSINOPHILS % (AUTO) 0.4 %; HGB - HEMOGLOBIN 8.9 g/dL (14.0-18.0); LYMPHOCYTES # (AUTO) 0.4 10^3/uL (1.5-3.5); MEAN CORPUSCULAR HEMOGLOBIN 36.6 pg (27.0-31.0); MEAN CORPUSCULAR HGB CONC 34.2 g/dL (32.0-36.0); MEAN CORPUSCULAR VOLUME 106.9 fL (80.0-94.0); MEAN PLATELET VOLUME 9.2 fL (7.4-11.4); MONOCYTES # (AUTO) 0.1 10^3/uL (0.0-1.0); NEUTROPHILS # (AUTO) 2.5 10^3/uL (1.5-6.6); NEUTROPHILS % (AUTO) 81.3 %; NUCLEATED RED BLOOD CELLS AUTO 0.6 /100WBC; RED BLOOD COUNT 2.43 10^6/uL (4.70-6.10); UNCORRECTED WHITE BLOOD COUNT 3.1 x10^3/uL; WHITE BLOOD COUNT 3.1 x10^3/uL (4.8-10.8)
[2017-04-20 05:26] LABS: ALBUMIN/GLOBULIN RATIO 0.6 (1.0-2.2); BILIRUBIN,TOTAL 0.4 mg/dL (0.2-1.0); BUN - BLOOD UREA NITROGEN 10 mg/dL (6-20); CALCIUM 6.9 mg/dL (8.5-10.3); CARBON DIOXIDE - CO2 35 mmol/L (21-32); CHLORIDE 93 mmol/L (101-111); CREATININE 0.5 mg/dL (0.6-1.2); GFR - MDRD 161 (>89); GLUCOSE 108 mg/dL (70-100); POTASSIUM 3.3 mmol/L (3.5-5.0); SODIUM 133 mmol/L (135-145); TOTAL PROTEIN 4.7 g/dL (6.7-8.2)
[2017-04-20 05:27] LABS: MAGNESIUM 1.7 mg/dL (1.7-2.8); PHOSPHORUS 2.5 mg/dL (2.5-4.6)
[2017-04-20 05:30] LABS: CALCIUM, IONIZED 1.05 mmol/L (1.15-1.33); VBG PH 7.402 (7.31-7.41)
[2017-04-20] MEDS: SODIUM CHLORIDE FLUSH 0.9% 10 ML SYRINGE IVP SCH ×3 (06:45→22:26)
[2017-04-20] MEDS: PANTOPRAZOLE 40 MG VIAL IVP SCH (06:45)
--- NOTE | 2017-04-20 07:38 | PROVIDER PROGRESS NOTE ---
Assessment/Plan - Problem List (1) Atrial fibrillation with RVR Assessment/Plan: Óscar's rate is controlled with the present meds. Will continue with the same. (2) Pneumonia Assessment/Plan: Started the Cefipime yesterday. No appreciable change. Still on 8-10 liters O2 via oxy mask. Family conference with Miriam Connors and end result is that Óscar will go home with hospice. necessary DME will be arranged. Will decrease interventions. and transition to comfort care. - Current Meds Current Meds: Current Medications Generic Name Dose Route Start Last Admin Trade Name Freq PRN Reason Stop Dose Admin Albuterol 2.5 mg 04/14/17 12:43 04/18/17 20:33 INH 2.5 mg Q4HR PRN Administration Wheezing Docusate Sodium 250 - 500 mg 04/17/17 09:00 04/19/17 09:56 Colace 250mg Capsule PO 500 mg DAILY LIZ Administration Sodium Chloride 1,000 mls @ 100 mls/hr 04/14/17 13:00 04/19/17 23:08 Normal Saline 0.9% IV Not Given .Q10H LIZ Norepinephrine Bitartrate 8 mg 250 mls @ 15 mls/hr 04/14/17 14:00 04/20/17 06: 41 / Dextrose IV Not Given .[id number] LIZ Protocol 8 MCG/MIN Vancomycin HCl 1 gm/ Sodium 250 mls @ 166.667 mls/hr 04/15/17 20:00 04/19/17 20 :03 Chloride IV 166.667 mls/hr Q12H LIZ Administration Cefepime HCl 2 gm/ Sodium 100 mls @ 200 mls/hr 04/19/17 09:00 04/19/17 21:08 Chloride IV 200 mls/hr BID LIZ Administration Lorazepam 1 mg 04/16/17 00:45 04/16/17 01:23 Ativan Intensol PO 1 mg Q4HR PRN Administration Anxiety Morphine Sulfate 10 mg 04/16/17 00:45 04/20/17 00:15 Roxanol PO 10 mg Q2HR PRN Administration PAIN Pantoprazole Sodium 40 mg 04/15/17 07:00 04/20/17 06:45 Protonix IVP 40 mg QDAC LIZ Administration Polyethylene Glycol 17 gm 04/17/17 09:00 04/19/17 09:57 Miralax PO 17 gm DAILY LIZ Administration Scopolamine HBr 1 patch 04/15/17 23:00 04/19/17 00:06 Transderm-Scop TOP 1 patch Q3D LIZ Administration Senna 8.6 - 17.2 mg 04/17/17 09:00 04/19/17 09:57 Senokot PO 17.2 mg DAILY LIZ Administration Sodium Chloride 10 ml 04/14/17 14:00 04/20/17 06:45 Normal Saline Flush 0.9% IVP 10 ml Q8HR LIZ Administration Tamsulosin HCl 0.5 mg 04/17/17 09:00 04/19/17 09:58 Flomax PO 0.4 mg DAILY LIZ Administration - Lab Result Fish Bone Diagrams: 04/20/17 05:00 04/20/17 05:00 - Additional Planning My Orders: My Active Orders 04/19/17 09:00 Cefepime 2 gm Sodium Chloride 0.9% Minibag [Normal Saline 0.9% Minibag] 100 ml IV BID 04/20/17 08:00 Potassium Chloride [K-Dur] 40 meq PO ONCE Subjective - Subjective Patient Reports: Back Pain, Fatigue, Shortness of Breath Nursing Reports: Pain, Shortness of Breath Objective Vital Signs: Vital Signs - 24 hr 04/19/17 04/19/17 04/19/17 07:55 08:00 08:47 Temperature Heart Rate 91 Heart Rate [ 93 88 Monitoring electrodes] Respiratory 20 20 16 Rate Blood Pressure 130/59 L 115/54 L [Right Brachial artery] O2 Saturation 93 98 04/19/17 04/19/17 04/19/17 09:59 11:00 12:00 Temperature 36.7 C Heart Rate Heart Rate [ 89 88 90 Monitoring electrodes] Respiratory 26 H 14 21 Rate Blood Pressure 118/48 L 119/44 L 128/54 L [Right Brachial artery] O2 Saturation 97 96 94 04/19/17 04/19/17 04/19/17 12:55 13:04 13:57 Temperature 37 C Heart Rate Heart Rate [ 90 97 Monitoring electrodes] Respiratory 22 18 Rate Blood Pressure 128/56 L 103/58 L [Right Brachial artery] O2 Saturation 97 96 04/19/17 04/19/17 04/19/17 14:49 15:46 17:00 Temperature 35.8 C L Heart Rate Heart Rate [ 97 99 98 Monitoring electrodes] Respiratory 20 22 19 Rate Blood Pressure 124/64 137/60 H 135/80 H [Right Brachial artery] O2 Saturation 96 96 94 04/19/17 04/19/17 04/19/17 18:00 19:00 20:00 Temperature 36.7 C Heart Rate Heart Rate [ 98 95 95 Monitoring electrodes] Respiratory 19 16 23 Rate Blood Pressure 97/73 118/67 116/63 [Right Brachial artery] O2 Saturation 96 95 94 04/19/17 04/19/17 04/19/17 21:00 22:00 23:00 Temperature Heart Rate Heart Rate [ 94 100 90 Monitoring electrodes] Respiratory 20 22 15 Rate Blood Pressure 150/71 H 125/64 147/47 H [Right Brachial artery] O2 Saturation 97 95 100 04/20/17 04/20/17 00:00 06:00 Temperature 36.6 C Heart Rate Heart Rate [ 93 99 Monitoring electrodes] Respiratory 20 24 Rate Blood Pressure 129/63 120/63 [Right Brachial artery] O2 Saturation 96 96 Oxygen O2 Source Oxymask I&O (Last 24 Hrs): Intake and Output Totals x24h 04/18/17 04/19/17 04/20/17 23:59 23:59 23:59 Intake Total 3544 3079 800 Output Total 1175 2950 370 Balance 2369 129 430 General: Alert, Oriented x3, Cooperative HEENT: Atraumatic, EOMI Neck: Supple, No JVD Neuro: Alert, Oriented Times 3 Cardiovascular: Other (Afib in the 90s) Respiratory: Wheezes, Rhonchi Abdomen: Normal bowel sounds, Soft, No tenderness Extremities: No cyanosis, No edema Skin: No rashes, No breakdown - Results Results: Laboratory Results WBC 3.1 x10^3/uL (4.8-10.8) L 04/20/17 05:00 RBC 2.43 10^6/uL (4.70-6.10) L 04/20/17 05:00 Hgb 8.9 g/dL (14.0-18.0) L 04/20/17 05:00 Hct 26.0 % (42.0-52.0) L 04/20/17 05:00 MCV 106.9 fL (80.0-94.0) H 04/20/17 05:00 MCH 36.6 pg (27.0-31.0) H 04/20/17 05:00 MCHC 34.2 g/dL (32.0-36.0) 04/20/17 05:00 RDW 15.0 % (12.0-15.0) 04/20/17 05:00 Plt Count 17 10^3/uL (130-450) L* 04/20/17 05:00 MPV 9.2 fL (7.4-11.4) 04/20/17 05:00 Reticulocyte % (Auto) 2.20 % (0.5-2.3) 04/15/17 11:56 Neut # 2.5 10^3/uL (1.5-6.6) 04/20/17 05:00 Lymph # 0.4 10^3/uL (1.5-3.5) L 04/20/17 05:00 [place] # 0.1 10^3/uL (0.0-1.0) 04/20/17 05:00 Eos # 0.0 10^3/uL (0.0-0.7) 04/20/17 05:00 Baso # 0.0 10^3/uL (0.0-0.1) 04/20/17 05:00 Absolute Nucleated RBC 0.02 x10^3/uL 04/20/17 05:00 Total Counted 100 04/19/17 05:05 Band Neuts % (Manual) 14 % (0-10) H 04/19/17 05:05 Metamyelocytes % 2 % (-0) H 04/17/17 07:05 Neutrophils # (Manual) 3.3 10^3/uL (1.5-6.6) 04/19/17 05:05 Lymphocytes # (Manual) 0.3 10^3/uL (1.5-3.5) L 04/19/17 05:05 Monocytes # (Manual) 0.0 10^3/uL (0.0-1.0) 04/19/17 05:05 Nucleated RBCs 0.6 /100WBC 04/20/17 05:00 Differential Comment MANUAL DIFFERENTIAL 04/19/17 05:05 Manual Slide Review Indicated 04/17/17 07:05 WBC Morphology 1+ TOXIC GRANULATION (NORMAL) 04/17/17 07:05 Platelet Estimate DECREASED (<130,000) (NORMAL) 04/19/17 05:05 Platelet Morphology 1+ LARGE PLATELETS (NORMAL) 04/17/17 07:05 RBC Morph Micro Appear 1+ TARGET CELLS (NORMAL) 1+ EVELYN CELLS (NORMAL) 01/27 04:48 RBC Morph Micro Appear 1+ ANISOCYTOSIS (NORMAL) 04/16/17 04:27 RBC Morph Micro Appear 1+ ANISOCYTOSIS (NORMAL) 04/17/17 07:05 RBC Morph Micro Appear NORMAL APPEARANCE (NORMAL) 04/19/17 05:05 Absolute Retic 0.054 10^6/uL (0.020-0.110) 04/15/17 11:56 VBG pH 7.402 (7.31-7.41) 04/20/17 05:00 Ionized Calcium 1.05 mmol/L (1.15-1.33) L 04/20/17 05:00 Sodium 133 mmol/L (135-145) L 04/20/17 05:00 Potassium 3.3 mmol/L (3.5-5.0) L 04/20/17 05:00 Chloride 93 mmol/L (101-111) L 04/20/17 05:00 Carbon Dioxide 35 mmol/L (21-32) H 04/20/17 05:00 Anion Gap 5.0 (6-13) L 04/20/17 05:00 BUN 10 mg/dL (6-20) 04/20/17 05:00 Creatinine 0.5 mg/dL (0.6-1.2) L 04/20/17 05:00 Estimated GFR (MDRD) 161 (>89) 04/20/17 05:00 Glucose 108 mg/dL (70-100) H 04/20/17 05:00 Lactic Acid 1.9 mmol/L (0.5-2.2) 04/14/17 10:45 Calcium 6.9 mg/dL (8.5-10.3) L 04/20/17 05:00 Ionized Calcium YES 04/20/17 05:00 Phosphorus 2.5 mg/dL (2.5-4.6) 04/20/17 05:00 Magnesium 1.7 mg/dL (1.7-2.8) 04/20/17 05:00 Iron 8 ug/dL (45-182) L 04/15/17 11:56 TIBC 147 ug/dL (250-450) L 04/15/17 11:56 % Saturation 5 % (20-50) L 04/15/17 11:56 Transferrin 105 mg/dL (180-329) L 04/15/17 11:56 Ferritin 977.3 ng/mL (23.9-336.2) H 04/15/17 11:56 Total Bilirubin 0.4 mg/dL (0.2-1.0) 04/20/17 05:00 AST 19 IU/L (10-42) 04/20/17 05:00 ALT 20 IU/L (10-60) 04/20/17 05:00 Alkaline Phosphatase 39 IU/L (42-121) L 04/20/17 05:00 Lactate Dehydrogenase 72 IU/L (91-225) L 04/15/17 11:56 Troponin I < 0.04 ng/mL (<0.49) 04/14/17 09:26 B-Natriuretic Peptide 279 pg/mL (5-100) H 04/14/17 09:26 Total Protein 4.7 g/dL (6.7-8.2) L 04/20/17 05:00 Albumin 1.7 g/dL (3.2-5.5) L 04/20/17 05:00 Globulin 3.0 g/dL (2.1-4.2) 04/20/17 05:00 Albumin/Globulin Ratio 0.6 (1.0-2.2) L 04/20/17 05:00 Vitamin B12 3263 pg/mL (180-914) H 04/15/17 11:56 Last Dose Date [facility] 04/17/17 07:05 Last Dose Time [facility] 04/17/17 07:05 Vancomycin Trough 12.7 ug/mL (5.0-15.0) 04/17/17 07:05 - Procedures Procedures: Procedures EXCISION OF UPPER ESOPHAGUS, ENDO, DIAGN (02/24/17) INSERTION OF INFUSION DEV INTO SUP VENA CAVA, PERC APPROACH (02/24/17) OTHER ENDOSCOPY OF SM INTEST (07/04/14)
[2017-04-20] MEDS ORDERED: POTASSIUM CHLORIDE 20 MEQ TABLET PO SCH (08:00)
[2017-04-20] MEDS: SODIUM CHLORIDE 0.9% 1,000 ML IV SCH (09:09)
[2017-04-20] MEDS: VANCOMYCIN INJ 1 GM in SODIUM CHLORIDE 0.9% 250 ML IV SCH ×2 (09:11→20:44)
[2017-04-20] MEDS: CEFEPIME 2 GM in SODIUM CHLORIDE 0.9% MINIBAG 100 ML IV SCH ×2 (09:12→22:16)
[2017-04-20] MEDS: POLYETHYLENE GLYCOL 3350 17 GM PACKET PO SCH (09:13)
[2017-04-20] MEDS: DOCUSATE SODIUM 250 MG CAPSULE PO SCH (09:13)
[2017-04-20] MEDS: SENNA 8.6 MG TABLET PO SCH (09:14)
[2017-04-20] MEDS: TAMSULOSIN 0.4 MG CAPSULE PO SCH (09:15)
--- NOTE | 2017-04-20 18:02 | CONSULTATION NOTE ---
DATE OF CONSULTATION: 04/20/2017 00:00:00 REQUESTING PROVIDER: Dr. Sanchez Russo. TIME OF VISIT: 8:30 to 9:00 a.m. TOPIC: Followup palliative care consult. 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 Currently, is hospitalized with PE, pneumonia and atrial fibrillation with rapid ventricular response. He has been on antibiotics since 04/14/2017 with very little improvement despite multiple changes and very attentive care. Given the family meeting yesterday, the decision is made to focus on comfort and quality of life, recognizing quantity of life is limited and discharge on Monday with hospice. We are meeting today to finish advanced care planning and POLST. SYMPTOM BURDEN: The patient has been using the morphine with relief of discomfort. Denies any pain or discomfort at time of visit. His cough remains, still remains with anorexia, feeling quite anxious and wanting to focus on getting home. PALLIATIVE CARE DISCUSSION WHO IS PRESENT: Myself, the patient, his daughter, Sis and his , Analy and Betty Bryant, Palliative care nurse practictioner. We did discuss in the context of transitioning home the POLST form as a tool to communicate to EMS as well as medical team, his wishes in transitioning home. In defining his goals of care. It is to focus on comfort and spending time with family and end of life have a comfortable and respectful at home. We did reaffirm that this was still his intention. He feels well supported by his family and is looking forward to transitioning home. I did spend some time discussing just the logistics and followup questions regarding hospice and hospice support, particularly with his , Analy. A cell phone for his was provided for hospice for the equipment delivery. and she is aware of the need to be available for delivery. Sis, her daughter, who is going to be available for the next few days for followup support, as well as their other daughter is coming from [place] to be present during this time. I reassurred as far as oxygen delivery that it can go from 8-10 liters and again that the focus would be on comfort, not necessarily on the numbers. IMPRESSION: This is a everette 76-year-old gentleman who presents with serious complications as a se[place] of his cancer, cancer treatment and now pneumonia. He continues to do poorly including respiratory effort, cough secretion, weight loss, anorexia and ongoing fatigue. I have reaffirmed his goals to transition home with hospice and completed the POLST to be reflective these goals and available for BLS transport or for any acute distress. RECOMMENDATIONS/COUNSELING DONE 1. Advanced care planning. POLST was completed. Followup information was given on hospice. Reconfirmed on goals of care and psychosocial support was given. 2. Constipation. Recommend continued aggressive bowel program. May need suppository or some mag citrate would be important for his bowels to move before transitioning home. TIME SPENT: Thirty minutes with greater than 50% of this done in counseling and coordination of care, followup with hospitalist as well as completion of form and communication to hospice. marriage and family social worker is aware of BLS transfer needed. Will leave communication between hospice and discharge planning, as schedule develops. JOB #: [id number] EXT JOB #:[id number] MAXIM
[2017-04-21] MEDS: SODIUM CHLORIDE 0.9% 1,000 ML IV SCH ×2 (00:35→02:15)
[2017-04-21] MEDS: MORPHINE SOL 10 MG/0.5 ML SYRINGE PO PRN ×4 (00:36→08:56)
[2017-04-21] MEDS: PANTOPRAZOLE 40 MG VIAL IVP SCH (06:17)
[2017-04-21] MEDS: SODIUM CHLORIDE FLUSH 0.9% 10 ML SYRINGE IVP SCH (06:17)
--- NOTE | 2017-04-21 08:03 | Discharge Plan ---
Discharge Plan Disposition: 01 Home, Self Care Condition: Serious Prescriptions: LORazepam [Ativan] 0.5 mg PO Q2H PRN #30 tablet PRN Reason: Agitation Cefuroxime Axetil [Ceftin] 250 mg PO Q12H #14 tablet Atropine 1% Ophth Drops [Isopto Atropine 1% Ophth Drops] 2 drops EACHEYE Q2H PRN #1 bottle PRN Reason: As Needed Per Provider Orders Morphine Sulfate [Morphine Sulf Oral (Roxanol)] 10 mg PO Q1H PRN #30 ml PRN Reason: Pain/Dyspnea Diet: Regular Activity Restrictions: Activity as Tolerated Shower Restrictions: Yes (shower chair) Assistance Devices: Wheelchair, Walker Weight Bearing: Full Weight No Smoking: If you smoke, Please STOP! Call for help. Follow-up with: Pritesh Guthrie MD [Primary Care Provider] - 2 Weeks
[2017-04-21] MEDS: VANCOMYCIN INJ 1 GM in SODIUM CHLORIDE 0.9% 250 ML IV SCH (08:25)
[2017-04-21] MEDS: DOCUSATE SODIUM 250 MG CAPSULE PO SCH (08:48)
[2017-04-21] MEDS: POLYETHYLENE GLYCOL 3350 17 GM PACKET PO SCH (08:48)
[2017-04-21] MEDS: SENNA 8.6 MG TABLET PO SCH (08:48)
[2017-04-21] MEDS: TAMSULOSIN 0.4 MG CAPSULE PO SCH (08:53)
[2017-04-21] MEDS: CEFEPIME 2 GM in SODIUM CHLORIDE 0.9% MINIBAG 100 ML IV SCH (10:15)
[2017-04-21 14:04] VITALS: BP 118/60
--- NOTE | 2017-04-22 08:11 | DISCHARGE SUMMARY ---
DATE OF ADMISSION: 04/14/2017 DATE OF DISCHARGE: 04/21/2017 PRIMARY CARE PHYSICIAN: Sanjiv Guthrie M.D. ADMISSION DIAGNOSES 1. New onset atrial fibrillation status post cardioversion, etiology likely pulmonary emboli. 2. Multiple pulmonary emboli. 3. Pneumonia. 4. 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 DISCHARGE DIAGNOSES 1. Progressive pneumonia, recalcitrant to multiple antibiotics. 2. Multiple pulmonary emboli. 3. Profound thrombocytopenia. 4. Atrial fibrillation with rapid ventricular response and status post cardioversion. 5. 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 SPECIAL PROCEDURES 1. The patient had a CTA of the chest and thorax which showed: Positive pulmonary embolus involving predominantly the right middle lobe, but with some subsegmental involvement of the lower lobe as well . No larger central lesion, possible filling defect in the right atrium, upper IVC, correlating with echocardiogram may be helpful. Right lower lobe cavity mass with additional masses and nodules bilate rally associated with lymphadenopathy, suspicious for lymphangitic spread. Right lower lobe congestio n, possible atypical infection. Marked IVC reflux indicating right heart dysfunction. 2. Venous duplex ultrasound, which showed no evidence of deep vein thrombosis in left upper extremit y. 3. Echocardiogram. Conclusions: a. Overall left ventricular systolic function lower limits of normal with ejection fraction of 50% t o 55%. b. Mild increase in left atrium volume index. c. Mild right atrial enlargement. d. Mild mitral regurgitation. HOSPITAL COURSE AND MANAGEMENT: Initial presentation, hospital emergency department evaluation, and h ospitalist plans are described in the History and Physical, see copy of same. 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 He started getting a cough and hoarseness in 12/2016, after having a URI. The patien t had a CT of his neck in January 2017, shows soft tissue mass. He received 2 cycles of chemotherapy. H e developed fatigue and continued cough, began coughing up copious amounts of yellow and green phlegm . He developed atrial fibrillation with RVR, noted to find to have pneumonia, was cardioverted after sedation. The patient was admitted to the ICU, started on Levophed for the hypotension and Zosyn and heparin, a s well as Levaquin. The patient over the next several days required more oxygen. Repeat chest x-ray s howed increase in his pneumonia. He had linear decline in his platelets to 21,000. The patient starte d expressing 4 days before discharge that he did not want to continue to have any more interventions, wanted to go home. This was arranged with able assistance of Miriam Connors and the hospice team, and the patient left on 04/21/2017 with a transition to comfort care and addition of antibiotic at the re quest of the patient. PHYSICAL EXAMINATION ON DAY OF DISCHARGE VITAL SIGNS: 36.5, 88, 118/60, 28 respirations, 94 on Oxymizer 15 liters. GENERAL: The patient is an elderly male, chronically ill-appearing, still interactive. EYES: EOM within normal limits, PERRL, nonicteric. MOUTH AND THROAT: Dry mucous membranes, coated tongue. No other pathology noted. NECK: No lymphadenopathy, no bruits, no JVD. CHEST: Nontender. Symmetric. HEART: Sinus rhythm. No murmurs, rubs, clicks heard. LUNGS: Have coarse rhonchi and rales, no wheezes, extensively on the right side and less on the left. ABDOMEN: Soft, nontender. RECTAL/GENITAL: No rectal/genital exam done. EXTREMITIES: No edema of the extremities. VASCULAR: Pulses still to the posterior tibial. LABORATORY DATA: Most recent lab on 04/20/2017 shows a white count of 3.1, 8.9 and 26 hemoglobin and hematocrit, macrocytic indices of 107, his platelets were down to 17,000. His sodium is 133, potassiu m 3.3, chloride 93, CO2 of 35, BUN 10, creatinine 0.5, glucose is 108. Calcium 6.9. His albumin was d own to 1.7. Liver enzymes were normal. Discharged home. DISCHARGE MEDICATIONS Patient was discharged home on: 1. Lisinopril 10 mg a day. 2. Tamsulosin 0.5 mg a day. 3. Albuterol 2 puffs inhaler q.4h. p.r.n. 4. Zantac 150 mg b.i.d. 5. Multivitamin daily. 6. Morphine. 7. Roxanol 10 mg every hour as needed. 8. Ativan 0.5 mg q.2h. p.r.n. 9. Ceftin 250 mg q.12h. 10. Atropine drops for excessive secretions 1-4 drops every 2 hours as needed. Durable medical equipment, including a hospital bed, are being arranged, and arriving before he does on the day of discharge. The patient is transported by ambulance as he is unable to stand, walk, or e carmen sit without assistance. The patient's time of discharge was 40 minutes, including collaboration with Case Management, Palliat rhianna Care, Hospice, Nursing, and education and counseling of the family. The patient was examined on d ay of discharge as noted above. JOB #: [id number] EXT JOB #:[id number]
== END 2017-04-21 12:35 | disposition home or self-care (01) | DRG 177 ==
LOC: ED 09:05 → ICU 12:43
PROVIDERS: ADMIT Specialist; ATTEND Internal Medicine
PROC: 5A2204Z Restoration of Cardiac Rhythm, Single (ICD-10-PCS; principal; 2017-04-14)
DX: J15.6 Pneumonia due to other Gram-negative bacteria (principal); I26.99 Other pulmonary embolism without acute cor pulmonale; C33 Malignant neoplasm of trachea; J18.9 Pneumonia, unspecified organism; C78.00 Secondary malignant neoplasm of unspecified lung; I10 Essential (primary) hypertension; D64.9 Anemia, unspecified; E78.00 Pure hypercholesterolemia, unspecified; I48.91 Unspecified atrial fibrillation; N40.0 Benign prostatic hyperplasia without lower urinary tract symptoms; D69.6 Thrombocytopenia, unspecified; Z85.118 Personal history of other malignant neoplasm of bronchus and lung; Z92.21 Personal history of antineoplastic chemotherapy; I95.9 Hypotension, unspecified; Z85.01 Personal history of malignant neoplasm of esophagus; K21.9 Gastro-esophageal reflux disease without esophagitis; R63.0 Anorexia; Z68.20 Body mass index [BMI] 20.0-20.9, adult; K59.00 Constipation, unspecified; D53.9 Nutritional anemia, unspecified; R09.02 Hypoxemia
CPT/HCPCS: 36415; 71010; 71275; 80048; 80053; 82040; 82330; 82607; 82728; 83540; 83605; 83615; 83735; 83880; 84100; 84466; 84484; 85025; 85044; 87040; 87070; 87077; 87150; 87205; 92960; 93005; 93010; 93306; 94640; 96361; 96374; 96375; 96376; 99223; 99232; 99284; 99285; 99406

== ENCOUNTER 2017-04-21 12:40 | Outpatient (CLI) | payer MEDICARE, OTHER | END 2017-04-21 12:41 | disposition home or self-care (01) | LOC: EMS 12:40 | PROVIDERS: ATTEND Surgery | DX: R53.1 Weakness (principal) | CPT/HCPCS: A0425; A0428 ==

== ENCOUNTER 2017-04-26 01:06 | Outpatient (CLI) | payer MEDICARE, OTHER | END 2017-04-26 01:07 | disposition EMS.NT | LOC: EMS 01:06 | PROVIDERS: ATTEND Surgery | DX: Z03.89 Encounter for observation for other suspected diseases and conditions ruled out (principal) ==